=== PATIENT | male | born 1970 | race Caucasian/White ===

== ENCOUNTER 2022-07-16 15:50 | Emergency (ER) | payer MEDICAID, OTHER, SELFPAY ==
--- OUTSIDE RECORDS SUMMARY | 2022-07-16 16:02 | XMS REPORT | Continuity of Care Document ---
:1970 Author Organization [facility] t Address [address] [place] [address] Care Team Providers Name Role Phone Carmen Shine DO Primary Care Physician CARMEN SHINE Attending Clinician Unavailable ROBERTA AZUL Attending Clinician Unavailable Roberta Azul MD Attending Clinician TESTING, RITA SUMNER Attending Clinician Unavailable [id number] Attending Clinician Unavailable RENETTA RAMSAY Attending Clinician Unavailable Renetta Ramsay DO Attending Clinician [facility] Attending Clinician Unavailable RADIOLOGY Attending Clinician Unavailable Radiology Attending Clinician Unavailable Carmen Shine DO Attending Clinician LAB90 Attending Clinician Unavailable Doctor Unassigned, [place] Attending Clinician Unavailable Laura Cerna DPM Attending Clinician KUNAL CARIRON Attending Clinician Unavailable Kunal Carrion MD Attending Clinician Nadine Walden Attending Clinician NADINE SHETTY Attending Clinician Unavailable ROBERTA AZUL Admitting Clinician Unavailable RENETTA RAMSAY Admitting Clinician Unavailable [facility] Admitting Clinician Unavailable CARMEN SHINE Admitting Clinician Unavailable Payers Payer Name Policy Type Policy Number Effective Date Expiration Date S jeffrey BCBS 2 [id number] 2022 00:00:00 [place] [id number] 2022 00:00:00 [place] [id number] 2022 (PPO) 00:00:00 [facility] [id number] 2020 PPO 00:00:00 Problems Condition Condition Condition Status Onset Resolution Last Treating Co mments Source Name Details Category Date Date Treatment Clinician Date 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-08 Seybold right right 00:00: great toe great toe 00 Ingrown Ingrown Disease Active Jenny toenail of toenail of 4-08 Se ybold right foot right foot 00:00: 00 No known No known Disease Unive rs active active ity of problems problems [place] [facility] [place] Allergies, Adverse Reactions, Alerts Allergy Allergy Status Severity Reaction(s) Onset Inactive Treating Comm ents Source Name Type Date Date Clinician Penicill Propensi Active Anaphylaxis 2020-0 U nivers ins ty to 1-30 ity of adverse 00:00: [place] reaction 00 Medical s Branch Penicill Propensi Active Anaphylaxis 2020-0 U nivers ins ty to 1-30 ity of adverse 00:00: [place] reaction 00 Medical s Branch PENICILL Drug Active Anaphylaxis Uni vers INS Class 1-30 ity of 00:00: [place] 00 Medical Branch Penicill Propensi Active Anaphylaxis 2020-0 U nivers ins ty to 1-30 ity of adverse 00:00: [place] reaction 00 Medical s Branch Penicill Propensi Active Anaphylaxis 2020-0 K elsey ins ty to 1-30 Seybold adverse 00:00: reaction 00 s PENICILL Allergy Active [place] INS to [facility]stanc [facility] Social History Social Habit Start Date Stop Date Quantity Comments Source History of Snuff User Jenny Teran tobacco use Exposure to 2022-06-23 2022-07-03 [facility] (event) Branch Alcohol intake 2022-02-21 2022-02-21 Ex-drinker Jenny Luu bold 00:00:00 00:00:00 (finding) Tobacco use and 2020-12-11 2020-12-11 User of smokeless Un iversity of exposure 00:00:00 00:00:00 tobacco [facility] Sex Ass[birth year] At [birth year] Jenny fry 00:00:00 00:00:00 Smoking Status Start Date Stop Date Source Unknown if ever smoked [facility] Never smoked tobacco [facility] Medications Ordered Filled Start Stop Current Ordering Indication Dosage Frequency Signature Comments Components Source Medication Medication Date Date Medication? Clinician (SIG) Name Name barium 2021- No [id number] 135mL 135 mL, U nivers sulfate 07-08 Oral, ity of (E-Z-HD 00:00: 23:50 ONCE, 1 [place] BARIUM) 98 00 :00 dose, On Medic al % oral Mon Branch suspension 07/07/22 at 135 mL 1900, Routine barium 2021- No [id number] 355mL 355 mL, U nivers sulfate 07-08 Oral, ity of (LIQUID E-Z 00:00: 23:50 ONCE, 1 Gopal young PAQUE) 60 % 00 :00 dose, On Medi maria g (w/v) oral Mon Branch suspension 07/07/22 at 355 mL 1900, Routine sod 2021- No [id number] 1{packe 1 Packet, Univers bicarb-citr 07-08 t} Oral, ity of ic 00:00: 23:50 ONCE, 1 [place] ac-simeth 00 :00 dose, On Medica l (E-Z-GAS Mon Branch II) 07/07/22 at 2.21-1.53 1900, gram/4 gram Routine packet 1 Packet iopamidol 2021- No [id number] 100mL 100 mL, Univers (ISOVUE 07-03 Intravenou ity o f 370-500 mL) 23:00: 23:00 s, ONCE, 1 [place] injection 00 :00 dose, On Medica l 100 mL Madeleine Branch 07/03/22 at 1800, Routine famotidine 2021- No 20mg 20 mg, Univ ers (PEPCID 07-03 Slow IV ity of (PF)) 22:15: 21:45 Push, [place] injection 00 :00 ONCE, 1 Medical 20 mg dose, On Branch Madeleine 07/03/22 at 1715, Routine gadobenate 2021- No [id number] .2mL/kg 0.2 mL/kg, Univers dimeglumine 06-20 Intravenou i ty of (MULTIHANCE 14:30: 14:29 s, ONCE, 1 [place] -15 mL) 00 :00 dose, On Medical injection Fri Branch 0.2 mL/kg 06/20/22 at 0930, Routine iopamidol 2021- No [id number] 55mL 55 mL, U nivers (ISOVUE 05-20 Intravenou ity o f 370-500 mL) 23:45: 22:38 s, ONCE, 1 [place] injection 00 :00 dose, On Medica l 55 mL Tue Branch 05/20/22 at 1845, Routine busPIRone Yes 7.5mg Take 7.5 Donavon sey HCl 7.5 MG 4-15 mg by Seybold oral Tablet 13:50: mouth 3 35 times daily Pantoprazol 2021-0 Yes 40mg Take 40 mg Jenny e Sodium 40 4-15 by mouth Seyb old MG oral 13:50: daily Tablet 35 Delayed Response busPIRone 2021-0 Yes 7.5mg Take 7.5 Donavon sey HCl 7.5 MG 4-08 mg by Seybold oral Tablet 15:44: mouth 3 41 times daily Pantoprazol 2021-0 Yes 40mg Take 40 mg Jenny e Sodium 40 4-08 by mouth Seyb old MG oral 15:44: daily Tablet 41 Delayed Response busPIRone 2021- Yes 7.5mg Take 7.5 Donavon sey HCl 7.5 MG 4-08 mg by Seybold oral Tablet 10:12: mouth 3 27 times daily Pantoprazol Yes 40mg Take 40 mg Jenny e Sodium 40 4-08 by mouth Seyb old MG oral 10:12: daily Tablet 27 Delayed Response Meloxicam Yes 15mg QD Take 1 Jenny 15 MG oral 4-08 tablet (15 Sey bold Tablet 00:00: mg total) 00 by mouth daily as needed for pain Meloxicam Yes 15mg QD Take 1 Jenny 15 MG oral 4-08 tablet (15 Sey bold Tablet 00:00: mg total) 00 by mouth daily as needed for pain Meloxicam Yes 15mg QD Take 1 Jenny 15 MG oral 4-08 tablet (15 Sey bold Tablet 00:00: mg total) 00 by mouth daily as needed for pain Ibuprofen Yes TAKE 1 Jenny 600 MG oral 3-25 TABLET BY Sey bold Tablet 00:00: MOUTH 00 EVERY 6 HOURS WITH FOOD NEEDED FOR PAIN AND INFLAMMATI ON TRIMETHOPRI Yes 1{tbl} Take 1 Ke lsey M-SULFAMETH 3-25 tablet by Sey bold OXAZOLE 00:00: mouth 800-160 MG 00 every 12 oral Tablet hours Ibuprofen 2021- No TAKE 1 Kelse y 600 MG oral 3-25 04-08 TABLET BY Se ybold Tablet 00:00: 00:00 MOUTH 00 :00 EVERY 6 HOURS WITH FOOD NEEDED FOR PAIN AND INFLAMMATI ON TRIMETHOPRI 0 2022- No 1{tbl} Take 1 K elsey M-SULFAMETH 3-25 04-08 tablet by Se ybold OXAZOLE 00:00: 00:00 mouth 800-160 MG 00 :00 every 12 oral Tablet hours busPIRone Yes 7.5mg Take 7.5 Uni vers 7.5 mg 2-02 mg by ity of tablet 17:06: mouth 3 [place] [address] (three) Medical times Branch daily. pantoprazol Yes 40mg Take 40 mg Univers e 40 mg EC 2-02 by mouth ity o f tablet 17:06: daily. [place] [address] Medical Branch busPIRone Yes 7.5mg Take 7.5 Uni vers 7.5 mg 2-02 mg by ity of tablet 17:06: mouth 3 [place] [address] ([facility]) Medical times [place] daily. pantoprazol 2020-0 Yes 40mg Take 40 mg Univers e 40 mg EC 2-02 by mouth ity o f tablet 17:06: daily. [address] busPIRone 2020-0 Yes 7.5mg Take 7.5 Uni vers 7.5 mg 2-02 mg by ity of tablet 11:06: mouth 3 [place] [address] ([facility]) [facility] times [place] daily. pantoprazol 2020-0 Yes 40mg Take 40 mg Univers e 40 mg EC 2-02 by mouth ity o f tablet 11:06: daily. [address] busPIRone 2020-0 Yes 7.5mg Take 7.5 Uni vers 7.5 mg 2-02 mg by ity of tablet 11:06: mouth 3 [place] [address] ([facility]) [facility] times [place] daily. pantoprazol 2020-0 Yes 40mg Take 40 mg Univers e 40 mg EC 2-02 by mouth ity o f tablet 11:06: daily. [address] busPIRone 2020-0 Yes 7.5mg Take 7.5 Uni vers 7.5 mg 2-02 mg by ity of tablet 11:06: mouth 3 [place] [address] ([facility]) [facility] times [place] daily. pantoprazol 2020-0 Yes 40mg Take 40 mg Univers e 40 mg EC 2-02 by mouth ity o f tablet 11:06: daily. [address] busPIRone 2020-0 Yes 7.5mg Take 7.5 Uni vers 7.5 mg 2-02 mg by ity of tablet 11:06: mouth 3 [place] [address] ([facility]) [facility] times [place] daily. pantoprazol 2020-0 Yes 40mg Take 40 mg Univers e 40 mg EC 2-02 by mouth ity o f tablet 11:06: daily. [address] busPIRone 2020-0 Yes 7.5mg Take 7.5 Uni vers 7.5 mg 2-02 mg by ity of tablet 11:06: mouth 3 [place] [address] ([facility]) [facility] times [place] daily. pantoprazol 1-0 Yes 40mg Take 40 mg Univers e 40 mg EC 2-02 by mouth ity o f tablet 11:06: daily. [address] busPIRone 2021-0 Yes 7.5mg Take 7.5 Uni vers 7.5 mg 2-02 mg by ity of tablet 11:06: mouth 3 [place] [address] ([facility]) Medical times [place] daily. pantoprazol 0 Yes 40mg Take 40 mg Univers e 40 mg EC 2-02 by mouth ity o f tablet 11:06: daily. [address] busPIRone Yes 7.5mg Take 7.5 Uni vers 7.5 mg 2-02 mg by ity of tablet 11:06: mouth 3 [place] [address] ([facility]) Medical times [place] daily. pantoprazol Yes 40mg Take 40 mg Univers e 40 mg EC 2-02 by mouth ity o f tablet 11:06: daily. [address] hyoscyamine hyoscyamine No 1 QID hyoscyamin [place] 0.125 mg 0.125 mg e 0.125 mg d a sublingual sublingual sublingual [facility] tablet tablet tablet al Place [address] 1 Health tablet 4 tablet 4 tablet 4 Out reac times a day times a day times a h by by day by Program sublingual sublingual sublingual route as route as route as needed. needed. needed. pantoprazol pantoprazol No 1 BID pantoprazo [place] e 40 mg e 40 mg le 40 mg da tablet,jessica tablet,jessica tablet,del [facility] yed release yed release ayed a l Take 1 Take 1 release Health tablet tablet Take 1 Outreac twice a day twice a day tablet h by oral by oral twice a Progra m route for route for day by 30 days. 30 days. oral route for 30 days. Jose' Jose' No Jose' [place] Colon Colon Colon da [facility] promethazin promethazin No promethazi [place] e 12.5 mg e 12.5 mg ne 12.5 mg da tablet TAKE tablet TAKE tablet [facility] ONE (1) ONE (1) TAKE ONE al TABLET(S) TABLET(S) (1) Healt h BY MOUTH BY MOUTH TABLET(S) Ou treac EVERY EVERY BY MOUTH h TWELVE TWELVE EVERY Program HOURS HOURS TWELVE NEEDED. NEEDED. HOURS NEEDED. sucralfate sucralfate No 1 QID sucralfate [place] 1 gram 1 gram 1 gram da tablet Take tablet Take tablet [facility] 1 tablet 4 1 tablet 4 Take 1 a l times a day times a day tablet 4 Health by oral by oral times a Outrea c route route day by h before before oral route Progr am meals for meals for before 30 days. 30 days. meals for 30 days. Immunizations Ordered Filled Immunization Date Status Comments Sour e Immunization Name Name Influenza Virus 2020-08-09 Completed Jenny fry Vaccine, 00:00:00 Unspecified Formulation Influenza Virus 2020-08-09 Completed Jenny fry Vaccine, 00:00:00 Unspecified Formulation Influenza Virus 2020-08-09 Completed Jenny fry Vaccine, 00:00:00 Unspecified Formulation Influenza Virus 2020-08-09 Completed Universit y of Vaccine 00:00:00 [facility] Influenza Virus 2020-08-09 Completed Universit y of Vaccine 00:00:00 [facility] Influenza Virus 2020-08-09 Completed Universit y of Vaccine 00:00:00 [facility] Influenza Virus 2020-08-09 Completed Universit y of Vaccine 00:00:00 [facility] Influenza Virus 2020-08-09 Completed Universit y of Vaccine 00:00:00 [facility] Influenza Virus 2020-08-09 Completed Universit y of Vaccine 00:00:00 [facility] Influenza Virus 2020-08-09 Completed Universit y of Vaccine 00:00:00 [facility] Influenza Virus 2020-08-09 Completed Universit y of Vaccine 00:00:00 [facility] Influenza Virus 2020-08-09 Completed Universit y of Vaccine 00:00:00 [facility] Vital Signs Vital Name Observation Time Observation Value Comments Source Systolic blood 2022-07-03 23:24:00 133 mm[Hg] Univer sity of pressure [facility] Diastolic blood 2022-07-03 23:24:00 87 mm[Hg] Unive rsity of pressure [facility] Heart rate 2022-07-03 23:24:00 69 /[facility] Respiratory rate 2022-07-03 23:24:00 18 /min [facility] Oxygen saturation 2022-07-03 23:24:00 99 /min Uni versity of in Arterial blood [facility] by Pulse oximetry [place] Body temperature 2022-07-03 21:00:00 36.28 Diann [facility] [place] [facility] Body height 2022-07-03 21:00:00 182.9 cm General acute hospital Body weight 2022-07-03 21:00:00 70.761 kg General acute hospital BMI 2022-07-03 21:00:00 21.16 kg/m2 General acute hospital BP Diastolic 2022-06-02 00:00:00 71 mm[Hg] [place] [facility] Height 2022-06-02 00:00:00 72 [in_i] [place] [facility] BMI (Body Mass 2022-06-02 00:00:00 21.6 kg/m2 [place] pelt salter Index) [facility] BP Systolic 2022-06-02 00:00:00 110 mm[Hg] [place] [facility] Body Weight 2022-06-02 00:00:00 159.6 [lb_av] [place] [facility] Body weight 2022-02-14 20:42:00 80.287 kg Jenny Guzman eybold BMI 2022-02-14 20:42:00 24.01 kg/m2 Jenny S eybold Systolic blood 2022-02-14 15:08:00 119 mm[Hg] Jenny Seybold pressure Diastolic blood 2022-02-14 15:08:00 80 mm[Hg] Kelse y Seybold pressure Heart rate 2022-02-14 15:08:00 72 /min Jenny S eyboskinny Body temperature 2022-02-14 15:08:00 36.22 Diann Grecia ey [place] Respiratory rate 2022-02-14 15:08:00 14 /min Grecia ey [place] Body height 2022-02-14 15:08:00 182.9 cm Jenny S eybold Body weight 2022-02-14 15:08:00 79.379 kg with shoes Jenny S eybold BMI 2022-02-14 15:08:00 23.73 kg/m2 Jenny S eybold Systolic blood 2020-12-11 16:59:00 126 mm[Hg] [facility] Diastolic blood 2020-12-11 16:59:00 74 mm[Hg] Unive rsity of [facility] Heart rate 2020-12-11 16:59:00 69 /min General acute hospital Respiratory rate 2020-12-11 16:59:00 20 /min [facility] Body height 2020-12-11 16:59:00 182.9 cm General acute hospital Body weight 2020-12-11 16:59:00 64.547 kg General acute hospital BMI 2020-12-11 16:59:00 19.30 kg/m2 General acute hospital Oxygen saturation 2020-12-11 16:59:00 99 /min Uni versity of in Arterial blood [facility] by Pulse oximetry [place] Systolic blood 2020-12-09 01:30:00 141 mm[Hg] Univer sity of [facility] Diastolic blood 2020-12-09 01:30:00 74 mm[Hg] Unive rsity of [facility] Heart rate 2020-12-09 01:30:00 77 /min General acute hospital Respiratory rate 2020-12-09 01:30:00 11 /min Univ [place] [facility] Oxygen saturation 2020-12-09 01:30:00 99 /min Uni versity of in Arterial blood [facility] by Pulse oximetry [place] Body temperature 2020-12-09 00:52:37 36.5 Diann [facility] Body weight 2020-12-08 22:56:00 63.504 kg General acute hospital Procedures Procedure Date / Time Performing Clinician Source Performed CT ABDOMEN PELVIS W 2022-07-03 22:03:44 [facility] [place] CONTRAST [facility] LIPASE 2022-07-03 21:45:00 Renetta Ramsay [facility] COMP. METABOLIC PANEL 2022-07-03 21:45:00 Renetta Ramsay [facility] [place] ([id number]) [facility] CBC WITH DIFF 2022-07-03 21:45:00 Renetta Ramsay [facility] CONSENT/REFUSAL FOR 2022-07-03 20:32:29 Doctor Unassigned, No [facility] MR ABDOMEN W WO 2022-06-20 14:22:49 Requisition, Paper [facility] CONTRAST MRCP Medical Branch CT ABDOMEN PELVIS W 2022-05-20 22:35:13 Requisition, Paper Unive [facility] CONTRAST [facility] US ABDOMEN COMPLETE 2022-05-20 22:25:00 Requisition, Paper Unive [facility] ASSIGNMENT OF BENEFITS 2022-05-20 20:10:32 Doctor Unassigned, No [facility] XR CHEST 1 VW 2020-12-08 23:37:26 Baudilio [facility] LIPASE 2020-12-08 23:24:00 Astudillo [facility] TROPONIN I 2020-12-08 23:24:00 Baudilio [facility] COMP. METABOLIC PANEL 2020-12-08 23:24:00 Esdras Astudillo [facility] ([id number]) [facility] CBC WITH DIFF 2020-12-08 23:24:00 Baudilio [facility] PROTHROMBIN TIME / INR 2020-12-08 23:24:00 Esdras [facility]illo [facility] ACTIVATED PARTIAL 2020-12-08 23:24:00 Baudilio [facility] THRMPLAS [facility] CONSENT/REFUSAL FOR 2020-12-08 22:41:51 [facility]igned, [facility] NOTICE OF PRIVACY 2020-12-08 22:41:35 Doctor Unassigned, No Univ [facility] PRACTICES [facility] Plan of Care Planned Activity Planned Date Details Comments Source Diagnostic Test 2022-06-02 CBC w/ auto diff [place] [facility] Pending 00:00:00 [code = CBC w/ auto Health O utreach diff] Program Diagnostic Test 2022-06-02 lipase, serum or [place] [facility] Pending 00:00:00 plasma [code = Health Outrea ch lipase, serum or Program plasma] Diagnostic Test 2022-06-02 CMP, serum or [place] [facility] Pending 00:00:00 plasma [code = CMP, Health O utreach serum or plasma] Program Diagnostic Test 2022-06-02 hepatitis C Ab, [place] [facility] Pending 00:00:00 [id number], Health Out reach serum or plasma Program [code = hepatitis C Ab, [id number], serum or plasma] Encounters Start End Encounter Admission Attending Care Care Encounter Source Date/Time Date/Time Type Type Clinicians Facility Department ID 2022-07-15 2022-07-15 Outpatient JENNY SHINE [id number] Jenny 16:00:00 16:00:00 CARMEN Seybol d 2022-07-08 2022-07-08 Outpatient JENNY SHINE [id number] Jenny 14:15:00 14:15:00 CARMEN Seybol d 2022-07-08 2022-07-08 Outpatient JENNY SHINE [id number] Jenny 00:00:00 00:00:00 CARMEN Seybol d 2022-07-08 2022-07-08 Outpatient JENNY SHINE [id number] Jenny 00:00:00 00:00:00 CARMEN Seybol d 2022-07-07 2022-07-07 [facility] [id number] Univers 12:41:09 23:59:00 [facility]22-07-07 2022-07-07 [facility] [id number] Univers 12:41:09 23:59:00 Encounter [id number] [id number] [facility] [id number] [facility] 807 Branch ([facility]) 2022-07-07 2022-07-07 Outpatient [facility] [id number] Univers 13:00:00 13:00:00 [facility]ERTA [id number] [facility] 2022-07-04 2022-07-04 Outpatient TESTING, LJ JENNY BURDEN [id number] Jenny 14:00:00 14:00:00 Seybol d 2022-07-04 2022-07-04 Outpatient GHW91-XLE JENNY BURDEN [id number] Jenny 12:55:00 12:55:00 Seybol d 2022-07-04 2022-07-04 Outpatient JENNY SHINE [id number] Jenny 00:00:00 00:00:00 CARMEN Seybol d 2022-07-04 2022-07-04 Outpatient JENNY SHINE [id number] Jenny 00:00:00 00:00:00 CARMEN Seybol d 2022-07-04 2022-07-04 Outpatient JENNY SHINE [id number] Jenny 00:00:00 00:00:00 CARMEN Seybol d 2022-07-03 2022-07-03 Emergency [facility] [id number] Univers 16:09:00 18:27:[address] [facility] 2022-07-03 2022-07-03 Emergency [facility] [id number] Univers 16:09:00 18:27:00 Renetta [id number] [facility] [id number] [facility] [id number] [address] 2022-07-03 2022-07-03 Outpatient JENNY SHINE [id number] Jenny 00:00:00 00:00:00 CARMEN Seybol d 2022-07-01 2022-07-01 Outpatient JENNY SHINE [id number] Jenny 00:00:00 00:00:00 CARMEN Seybol d 2022-06-25 2022-06-25 Outpatient Amaya_Vane [facility] [id number] [place] 00:00:00 00:00:00 bin [id number] da [facility] Outre [facility] Program 2022-06-24 2022-06-24 Outpatient JENNY SHINE [id number] Jenny 00:00:00 00:00:00 CARMEN Seybol d 2022-06-24 2022-06-24 Outpatient JENNY SHINE [id number] Jenny 00:00:00 00:00:00 CARMEN Seybol d 2022-06-24 2022-06-24 Outpatient PREZAJNENY Guzman [id number] Jenny 00:00:00 00:00:00 CARMEN Seybol d 2022-06-24 2022-06-24 Outpatient PREZAJENNY Guzman [id number] Jenny 00:00:00 00:00:00 CARMEN Seybol d 2022-06-23 2022-06-23 Outpatient PREZAJENNY Guzman [id number] Jenny 00:00:00 00:00:00 CARMEN Seybol d 2022-06-20 2022-06-20 Outpatient R RADIOLOGY [facility] [id number] Univers 08:33:34 23:59:00 ity of [facility] 2022-06-20 2022-06-20 Hospital Radiology [facility] [id number] Univers 08:33:34 23:59:00 Encounter JOCY [id number] ity [facility] [id number] [facility] [id number] [address] 2022-06-20 2022-06-20 Outpatient R RADIOLOGY [facility] [id number] Univers 09:00:00 09:00:00 [id number] ity of [facility] 2022-06-20 2022-06-20 Outpatient PREZAJENNY Guzman [id number] Jenny 00:00:00 00:00:00 CARMEN Seybol d 2022-06-20 2022-06-20 Outpatient PREZAJENNY Guzman [id number] Jenny 00:00:00 00:00:00 CARMEN Seybol d 2022-06-16 2022-06-16 Office PrezaRolly guzman [id number] Jenny 14:00:00 14:30:00 Visit Carmen Muir [id number] Se fry [id number] 2022-06-12 2022-06-12 Outpatient LAB90 JENNY BURDEN [id number] Jenny 14:50:00 14:50:00 Seybol d 2022-06-12 2022-06-12 Outpatient JENNY SHINE [id number] Jenny 00:00:00 00:00:00 CARMEN Seybol d 2022-06-11 2022-06-11 Outpatient PREZACarole JENNY JENNY [id number] Jenny 00:00:00 00:00:00 CARMEN Seybol d 2022 2022 Outpatient PREZAS, JENNY BURDEN [id number] Jenny 00:00:00 00:00:00 CARMEN Seybol d 2022 2022 Outpatient PREZAS JENNY BURDEN [id number] Jenny 00:00:00 00:00:00 CARMEN Seybol d 2022 2022 Outpatient PREZAS, JENNY BURDEN [id number] Jenny 00:00:00 00:00:00 CARMEN Seybol d 2022-06-09 2022-06-09 Outpatient LAB90 JENNY BURDEN [id number] Jenny 15:15:00 15:15:00 Seybol d 2022-06-09 2022-06-09 Office Rolly Shine [id number] Jenny 14:30:00 15:00:00 Visit Carmen Wood [id number] Se ybold [id number] 2022-06-09 2022-06-09 Outpatient PREBAILEE JENNY BURDEN [id number] Jenny 00:00:00 00:00:00 CARMEN Seybol d 2022-06-03 2022-06-03 Outpatient Amaya_Vane [facility] 120 [id number] [place] 10:47:00 10:47:00 bin [id number] [facility] 2022-06-02 2022-06-02 Outpatient Amaya_Vane [facility] [id number] [place] 03:48:00 03:48:00 bin [id number] [facility] 2022-06-02 2022-06-02 Damien Quispe [facility] [place] - [id number] [place] 00:00:00 00:00:00 Emir Conde MD: [id number] [facility] [employer] copy clerk [place] [address] HOP - [facility] [address] [place] [id number] , Ph. 2022-05-29 2022-05-29 Outpatient Ferguson_Ro [facility] [id number] [place] 04:59:00 04:59:00 bin [id number] [facility] 2022-05-20 2022-05-20 Hospital Radiology [facility] [id number] Univers 15:13:16 23:59:00 Encounter [place] [id number] ity of [place] [id number] [facility] s MERIDIAN [id number] [facility] [facility] [address] 2022-05-20 2022-05-20 Outpatient R RADIOLOGY [facility] [id number] Univers 15:12:47 15:12:00 ity of [facility] 2022-05-20 2022-05-20 [facility] Radiology [facility] 1.2.840.114 [id number] Univers 15:05:00 15:12:00 Encounter [place] 350.1.13.10 ity of [facility] 4.2.7.2.686 [facility] s CAMPUS [id number] [facility] [address] 2022-05-20 2022-05-20 [facility] Radiology [facility] 1.2.840.114 [id number] Univers 14:30:00 15:04:00 Encounter [place] 350.1.13.10 ity of [facility] 4.2.7.2.686 [facility] [id number] [facility] [address] 2022-05-20 2022-05-20 Outpatient R RADIOLOGY [facility] [id number] Univers 14:30:00 14:30:[id number] [facility] 2022-05-20 2022-05-20 Orders Doctor ORNELAS 1.2.840.114 [id number] Univers 00:00:00 00:00:00 Only Unassigned, ALTHEA 350.1.13.10 ity of [place] [facility] 4.2.7.2.686 Juan Manuel [id number] [address] 2022-02-21 2022-02-21 Office LO Cerna 1.2.840.114 [id number] Jenny 13:50:00 14:00:00 Visit Laura Munoz 350.1.13.13 S [place] 1.2.7.2.686 [id number] 0 2022-02-14 2022-02-14 Office LO Cerna 1.2.840.114 [id number] Jenny 15:50:00 16:00:00 Visit Laura Munoz 350.1.13.13 S [place] 1.2.7.2.686 [id number] 0 2022-02-14 2022-02-14 Office Rolly Shine 1.2.840.114 [id number] Jenny 10:00:00 10:30:00 Visit Carmen Muir 350.1.13.13 Se [place]bold 1.2.7.2.686 [id number] 0 2021-01-22 2021-01-22 Outpatient R [facility] [id number] Univers 08:00:00 08:00:[id number] [facility] 2021-01-22 2021-01-22 Outpatient R [facility] [id number] Univers 08:00:00 [facility] 2021[facility]22 [facility] [id number] Univers 08:00:00 08:00:00 KUNAL zapata [facility] 2021-01-02 2021-01-02 Outpatient R [facility] [id number] Univers 10:00:00 10:00:00 [id number] [facility]-01-02 2021-01-02 Outpatient R MURALI [facility] [id number] Univers 10:00:00 10:00:00 KUNAL zapata [facility] 2020-12-11 2020-12-11 [facility] 1.2.840.114 [id number] Univers 10:34:03 11:36:43 Visit Kunal Sandra 350.1.13.10 French 4.2.7.2.686 [facility] Professio [id number] Ma dical nal [address] [facility] 2020-12-11 2020-12-11 Outpatient R MURALI [facility] [id number] Univers 10:40:00 10:40:00 KUNAL gonsalez o f [facility] 2020-12-08 2020-12-08 Emergency [facility] 1.2.829.961 [id number] Univers 17:09:00 19:49:00 Nadine Guzman Ringle 350.1.13.10 i [facility] 4.2.7.2.686 [facility] [id number] [facility] [address] 2020-12-08 2020-12-08 Emergency X [facility] ERT [id number] Univers 17:09:00 17:09:[address] [facility] Results Test Description Test Time Test Comments Results Result Comments Source COMP. METABOLIC PANEL (65280) 2022-07-03 22:31:09 Test Item Value Reference Range Interpretation Comme nts NA (test code = 5184990246) 138 mmol/L 135-145 K (test code = 2399811925) 3.8 mmol/L 3.5-5 CL (test code = 0900337389) 101 mmol/L 98-108 CO2 TOTAL (test code = 30 mmol/L 23-31 5069769445) AGAP (test code = 8796894737) 2-16 BUN (test code = 5135114154) 11 mg/dL 7-23 GLUCOSE (test code = 4438560931) 95 mg/dL 70-110 CREATININE (test code = 1.08 mg/dL 0.6-1.25 9377899094) TOTAL BILI (test code = 0.8 mg/dL 0.1-1.0 4084094565) CALCIUM (test code = 3289997884) 9.5 mg/dL 8.6-10.6 T PROTEIN (test code = 7.1 g/dL 6.3-8.2 4174284467) ALBUMIN (test code = 1521353561) 4.5 g/dL 3.5-5 ALK PHOS (test code = 3724517868) 54 U/L 34-122 ALTv (test code = 1742-6) 23 U/L 5-50 AST(SGOT) (test code = 25 U/L 13-40 7786614437) eGFR (test code = 0797580791) mL/min/1.73m2 JERMAN (test code = JERMAN) Association of Glomerular Filtration Rate (GFR) and Staging of Kidney Disease* + +--------- + ----+| GFR (mL/min/1.73 m2) ?| With Kidney Damage ?| ?Without Kidney Damage+ +--- + +| ?>90 ?| ?Stage one ?| ? Normal ?+ +-------- + -----+| ?60-89 ?| ?Stage two ?| ? Decreased GFR ? + +--------- + ----+| ?30-59 ?| ?Stage three ?| ? Stage three ? + +--------- + ----+| ?15-29 ?| ?Stage four ? | ? Stage four ?+ +-------- + -----+| ?<15 (or dialysis) ? ?| ?Stage five ? | ? Stage five ?+ +-------- + -----+ *Each stage assumes the associated GFR level has been in effect for at least three months. ?Stages 1 to 5, with or without kidney disease, indicate chronic kidney disease. Notes: Determination of stages one and two (with eGFR >59mL/min/1.73 m2) requires estimation of kidney damage for at least three months as defined by structural or functional abnormalities of the kidney, manifested by either:Pathological abnormalities or Markers of kidney damage (including abnormalities in the composition of the blood or urine or abnormalities in imaging tests). [facility]30[facility]48 Test Item Value Reference Range Interpretation Comments LIPASE (test code = 8355036399) 40 U/L 0-220 Lab Interpretation (test code = Normal 48540-9) [facility] [id number] 21:59:45 Test Item Value Reference Range Interpretation Comments WBC (test code = See_Comment [Automated message] 6690-2) The system [employer] generated this result transmitted ref erence range: 4.20 - 1 0.70 10*3/?L. The re ference range was not u sed to interpret this result as normal/abnor mal. RBC (test code = See_Comment [Automated message] 789-8) The system [employer] generated this result transmitted ref erence range: 4.26 - 5 .52 10*6/?L. The re ference range was not u sed to interpret this result as normal/abnor mal. HGB (test code = 13.7 g/dL 12.2-16.4 718-7) HCT (test code = 39.4 % 38.4-49.3 4544-3) MCV (test code = 84.7 fL 81.7-95.6 787-2) MCH (test code = 29.5 pg 26.1-32.7 785-6) MCHC (test code = 34.8 g/dL 31.2-35 786-4) RDW-SD (test code 40.9 fL 38.5-51.6 = 17445-1) RDW-CV (test code 13.2 % 12.1-15.4 = 788-0) PLT (test code = See_Comment [Automated message] 777-3) The system [employer] generated this result transmitted ref erence range: 150 - 32 8 10*3/?L. The re ference range was not u sed to interpret this result as normal/abnor mal. MPV (test code = 10.6 fL 9.8-13 10355-3) NRBC/100 WBC (test See_Comment [Automat ed message] code = 0049998274) The syste m which generated this result transmitted ref erence range: 0.0 - 10 .0 /100 WBCs. The refer ence range was not u sed to interpret this result as normal/abnor mal. NRBC x10^3 (test See_Comment [Automated message] code = 7462091542) The syste m which generated this result transmitted ref erence range: 10*3/?L. The reference range was not used to interpr et this result as normal/abnormal . GRAN MAT (NEUT) % 51.3 % (test code = 770-8) IMM GRAN % (test 0.60 % code = 9297704690) LYMPH % (test code 32.1 % = 736-9) MONO % (test code 11.7 % = 5905-5) EOS % (test code = 2.9 % 713-8) BASO % (test code 1.4 % = 706-2) GRAN MAT 2.49 10*3/uL 1.99-6.95 x10^3(ANC) (test code = 2090394189) IMM GRAN x10^3 0.03 10*3/uL 0-0.06 (test code = 5806212393) LYMPH x10^3 (test 1.56 10*3/uL 1.09-3.23 code = 731-0) MONO x10^3 (test 0.57 10*3/uL 0.36-1.02 code = 742-7) EOS x10^3 (test 0.14 10*3/uL 0.06-0.53 code = 711-2) BASO x10^3 (test 0.07 10*3/uL 0.01-0.09 code = 704-7) [id number] [facility]22:00 Test Item Value Reference Range Interpretation Comments TROPONIN I (test <0.012 See_Comment [Automated code = 3344171791) message] The system which generated this result transmitted reference range : <=0.034 ng/mL. The reference range was not used to interpr et this result as normal/abnormal . JERMAN (test code = Equal or Less than JERMAN) 0.034 ng/ml---Normal ?Note: Cardiac troponin begins to rise 3-4 hours after the onset of ischemia. Repeat in 4-6 hours if the sample was drawn within 3-4 hours of the onset of the symptom and found normal. Between 0.035 and 0.120 ng/mL--- Borderline. Questionable myocardial injury or necrosis ? ?Note: Serial measurement may be necessary to confirm or exclude the diagnosis of myocardial injury or necrosis; Clinical correlation (symptoms, EKGs, imaging studies, and others) required; Repeat in 4-6 hours if clinically indicated. ? Equal or Higher than 0.121 ng/mL---Abnormal. Myocardial Injury or Necrosis Likely ? Biotin has been reported to cause a negative bias, interpret results relative to patient's use of biotin. ? Lab Interpretation Normal (test code = 41322-2) [facility]. METABOLIC PANEL (14501)2020-12-09 00:14:00 Test Item Value Reference Range Interpretation Comments NA (test code = 137 mmol/L 135-145 2612014459) K (test code = 3.8 mmol/L 3.5-5 3015034394) CL (test code = 98 mmol/L 98-108 6006866180) CO2 TOTAL (test code = 32 mmol/L 23-31 H 7351100141) AGAP (test code = 2-16 2317814365) BUN (test code = 15 mg/dL 7-23 3994267336) GLUCOSE (test code = 102 mg/dL 70-110 8856431767) CREATININE (test code = 0.92 mg/dL 0.6-1.25 7501837951) TOTAL BILI (test code = 0.9 mg/dL 0.1-1.9 5853271559) CALCIUM (test code = 9.4 mg/dL 8.6-10.6 5779384985) T PROTEIN (test code = 7.6 g/dL 6.3-8.2 1528732697) ALBUMIN (test code = 4.7 g/dL 3.5-5 0341442474) ALK PHOS (test code = 66 U/L 34-122 7768954902) ALTv (test code = 35 U/L 5-50 1742-6) AST(SGOT) (test code = 35 U/L 13-40 1196698656) eGFR Calculation mL/min/1.73m2 (Non-) (test code = 2949469065) eGFR Calculation mL/min/1.73m2 () (test code = 2021254155) JERMAN (test code = JERMAN) Association of Glomerular Filtration Rate (GFR) and Staging of Kidney Disease* + --+ --+ ------+| GFR (mL/min/1.73 m2) ?| With Kidney Damage ?| ?Without Kidney Damage+ --------+ --------+ +| ?>90 ?| ?Stage one ?| ? Normal ?+ ---+ ---+ -------+| ?60-89 ?| ?Stage two ?| ? Decreased GFR ? + --+ --+ ------+| ?30-59 ?| ?Stage three ?| ? Stage three ? + --+ --+ ------+| ?15-29 ?| ?Stage four ? | ? Stage four ?+ ---+ ---+ -------+| ?<15 (or dialysis) ? ?| ?Stage five ? | ? Stage five ?+ ---+ ---+ -------+ *Each stage assumes the associated GFR level has been in effect for at least three months. ?Stages 1 to 5, with or without kidney disease, indicate chronic kidney disease. Notes: Determination of stages one and two (with eGFR >59mL/min/1.73 m2) requires estimation of kidney damage for at least three months as defined by structural or functional abnormalities of the kidney, manifested by either:Pathological abnormalities or Markers of kidney damage (including abnormalities in the composition of the blood or urine or abnormalities in imaging tests). Lab Interpretation Abnormal (test code = 06094-7) [facility] [id number] 00:10:00 Test Item Value Reference Range Interpretation Comments LIPASE (test code = 4800978873) 32 U/L 0-220 Lab Interpretation (test code = Normal 70512-5) [facility] 00:08:00 Test Item Value Reference Range Interpretation Comments APTT Patient (test See_Comment [Automat ed code = 3173-2) message] The system which generated this result transmitted reference range : 23 - 38 Seconds . The reference range was not used to interpr et this result as normal/abnormal . JERMAN (test code = JERMAN) The [facility] patient population mean normal value for aPTT is 30 seconds. Lab Interpretation Normal (test code = 79166-0) [facility] / [id number] 00:06:00 Test Item Value Reference Range Interpretation Comments PROTIME PATIENT (test See_Comment [Auto mated message] code = 5964-2) The system wh ich generated this result transmitted ref erence range: 12.0 - 1 4.7 Seconds. The re ference range was not u sed to interpret this result as normal/abnor mal. INR (test code = 6301-6) Nor mal INR <1.1; Warfarin Therap eutic range 2.0 to 3. 0 or 2.5 to 3.5, dep ending upon the indica tions. Lab Interpretation (test Normal code = 21604-8) [facility] WITH [id number] 00:02:00 Test Item Value Reference Range Interpretation Comments WBC (test code = See_Comment [Automated 5976-2) message] The sy stem which generated this result transmitted reference range : 4.20 - 10.70 10*3/?L. The reference range was not used to interpret this result as normal/abnormal . RBC (test code = See_Comment [Automated 549-8) message] The sy stem which generated this result transmitted reference range : 4.26 - 5.52 10*6/?L. The reference range was not used to interpret this result as normal/abnormal . HGB (test code = 14.3 g/dL 12.2-16.4 718-7) HCT (test code = 41.4 % 38.4-49.3 4544-3) MCV (test code = 86.3 fL 81.7-95.6 787-2) MCH (test code = 29.8 pg 26.1-32.7 785-6) MCHC (test code = 34.5 g/dL 31.2-35 786-4) RDW-SD (test code = 39.8 fL 38.5-51.6 51254-3) RDW-CV (test code = 12.6 % 12.1-15.4 788-0) PLT (test code = See_Comment [Automated 777-3) message] The sy stem which generated this result transmitted reference range : 150 - 328 10*3/ ?L. The reference r melissa was not used to interpret this result as normal/abnormal . MPV (test code = 10.1 fL 9.8-13 43950-9) NRBC/100 WBC (test See_Comment [Automat ed code = 9474213941) message] The system which generated this result transmitted reference range : 0.0 - 10.0 /100 WBCs. The refer ence range was not u sed to interpret th is result as normal/abnormal . NRBC x10^3 (test code <0.01 See_Comment [Auto mated = 6529576380) message] The s ystem which generated this result transmitted reference range : 10*3/?L. The reference range was not used to interpret this result as normal/abnormal . GRAN MAT (NEUT) % 65.7 % (test code = 770-8) IMM GRAN % (test code 0.70 % = 1670198432) LYMPH % (test code = 22.1 % 736-9) MONO % (test code = 9.9 % 5905-5) EOS % (test code = 0.7 % 713-8) BASO % (test code = 0.9 % 706-2) GRAN MAT x10^3(ANC) 3.60 10*3/uL 1.99-6.95 (test code = 6414474244) IMM GRAN x10^3 (test 0.04 10*3/uL 0-0.06 code = 5364019146) LYMPH x10^3 (test code 1.21 10*3/uL 1.09-3.23 = 731-0) MONO x10^3 (test code 0.54 10*3/uL 0.36-1.02 = 742-7) EOS x10^3 (test code = 0.04 10*3/uL 0.06-0.53 L 711-2) BASO x10^3 (test code 0.05 10*3/uL 0.01-0.09 = 704-7) Lab Interpretation Abnormal (test code = 05931-7) [facility]"
--- NOTE | 2022-07-16 16:26 | RAD REPORT ---
EXAM DESCRIPTION: RAD - Chest Single View - 07/16/2022 4:21 pm CLINICAL HISTORY: CHEST PAIN Chest pain. COMPARISON: No comparisons FINDINGS: Portable technique limits examination quality. The lungs are mildly emphysematous but grossly clear. The heart is normal in size. No displaced fract ures. IMPRESSION: No acute intrathoracic process suspected.
--- NOTE | 2022-07-16 17:35 | RAD REPORT ---
EXAM DESCRIPTION: US - Abdomen Exam Limited - 07/16/2022 5:21 pm CLINICAL HISTORY: abdominal pain COMPARISON: No comparisons FINDINGS: The gallbladder is absent. No significant abnormality seen in the gallbladder fossa. The c ommon bile duct is normal measuring 4 mm. The liver demonstrates no findings of intrahepatic biliary dilatation. IMPRESSION: Negative study.
[2022-07-16 17:45] LABS: Absolute Lymphocytes (CBC) 1.8 K/uL (0.7-4.9); Hematocrit 40.6 % (39.6-49.0); Lymphocytes % 32.7 % (15.3-44.8); MCV 84.9 fL (80-100); MPV 8.5 fL (7.6-11.3); RBC Red Blood Cell Count 4.78 M/uL (4.33-5.43)
[2022-07-16 18:01] LABS: Albumin 3.7 g/dL (3.4-5.0); Bilirubin Direct 0.2 mg/dL (0-0.2); Bilirubin Total 0.4 mg/dL (0.2-1.0); Potassium 3.6 mmol/L (3.5-5.1); Protein, Total 7.4 g/dL (6.4-8.2)
--- NOTE | 2022-07-16 19:36 | RAD REPORT ---
EXAM DESCRIPTION: CT - Chest For Pe Angio - 07/16/2022 7:22 pm CLINICAL HISTORY: Chest pain. chest pain, sob COMPARISON: Head C Spine Mpr Wo Con dated 07/16/2020; Head C Spine Mpr Wo Con dated 05/07/2019No compar isons TECHNIQUE: CT angiogram of the pulmonary arteries was performed with MIP. All CT scans are performed using dose optimization technique as appropriate and may include automated exposure control or mA/KV adjustment according to patient size. FINDINGS: No evidence of pulmonary thromboembolism. No acute aortic finding demonstrated. The lungs are clear. No significant pericardial or pleural fluid. No concerning bony finding. IMPRESSION: No evidence of pulmonary thromboembolism. No acute lung findings.
--- NOTE | 2022-07-16 19:43 | RAD REPORT ---
EXAM DESCRIPTION: CTAbdomen Pelvis W Contrast - 07/16/2022 7:22 pm CLINICAL HISTORY: Abdominal pain. epigastric abdominal pain COMPARISON: No comparisons TECHNIQUE: Biphasic CT imaging of the abdomen and pelvis was performed with 100 ml non-ionic IV cont rast. All CT scans are performed using dose optimization technique as appropriate and may include automated exposure control or mA/KV adjustment according to patient size. FINDINGS: The lung bases are clear. The liver, spleen, pancreas, adrenal glands and kidneys are within normal limits. No bowel obstruction, free air, free fluid or abscess. Cholecystectomy. Appendectomy. No evidence of significant lymphadenopathy. No suspicious bony findings. IMPRESSION: No acute intra-abdominal or pelvic finding.
--- NOTE | 2022-07-16 20:30 | RAD REPORT ---
EXAM DESCRIPTION: CT - Head Brain Wo Cont - 07/16/2022 8:23 pm CLINICAL HISTORY: dizziness, headache Headache, drowsiness, dizziness COMPARISON: No comparisons TECHNIQUE: All CT scans are performed using dose optimization technique as appropriate and may inclu de automated exposure control or mA/KV adjustment according to patient size. FINDINGS: No intracranial hemorrhage, hydrocephalus or extra-axial fluid collection.No areas of brai n edema or evidence of midline shift. The paranasal sinuses and mastoids are clear. The calvarium is intact. IMPRESSION: No acute intracranial abnormality.
[2022-07-16] MEDS ORDERED: MAGNES/ALUMIN/SIMET 30ML UCUP ONE (20:40)
[2022-07-16] MEDS ORDERED: LIDOCAINE VISCOUS 2% SOLN 15 ML UDC ONE (20:40)
--- NOTE | 2022-07-16 22:36 | EDPHYS ---
Physician Documentation [facility] Name: Dayday Watkins Age: 52 yrs Sex: Male : 1970 Arrival Date: 07/16/2022 Time: 15:52 Bed 11 Private MD: ED Physician Rudi Rubalcava HPI: 07/16 16:07 This 52 yrs old Male presents to ER via Ambulatory with complaints of Chest Pain, jmm Abdominal Pain. 16:07 Onset: The symptoms/episode began/occurred today. Associated signs and symptoms: jmm Pertinent positives: Pertinent negatives: fever. Modifying factors: The patient symptoms are alleviated by nothing, the patient symptoms are aggravated by eating food. The patient has experienced similar episodes in the past, chronically. This is a 52 year old male with no chronic medical conditions that presents to the ED with complaints of epigastric pain beginning thing morning after eating. Patient states then developing chest pain with some shortness of breath. Denies fever, vomiting, diarrhea. . 20:13 Upon discussion with the who was revealed the patient had also been having jmm progressively worsening dizziness over the past few days to the point the patient has difficulty walking more than a few steps. Also states the patient has had brain fog with difficulty recalling information. Patient is now at the point where he is unable to drive.. Historical: - Allergies: 16:08 PENICILLINS; kb3 - Home Meds: 16:08 None [Active]; kb3 - PMHx: 16:08 None; kb3 - PSHx: 16:08 None; kb3 - Immunization history:: Adult Immunizations up to date, Client reports having NOT received the Covid vaccine. - Social history:: Smoking status: Patient denies any tobacco usage or history of. ROS: 16:07 Constitutional: Negative for fever, chills, and weight loss. jmm 16:07 Cardiovascular: Positive for chest pain. 16:07 Respiratory: Positive for shortness of breath. 16:07 Abdomen/GI: Positive for abdominal pain. 16:07 All other systems are negative. Exam: 16:07 Constitutional: This is a well developed, well nourished patient who is awake, alert, jmm and in no acute distress. Head/Face: atraumatic. Eyes: EOMI, no conjunctival erythema appreciated ENT: Moist Mucus Membranes Neck: Trachea midline, Supple Chest/axilla: Normal chest wall appearance and motion. Cardiovascular: Regular rate and rhythm. No edema appreciated Respiratory: Normal respirations, no respiratory distress appreciated 16:07 Back: Normal ROM Skin: General appearance color normal MS/ Extremity: Moves all extremities, no obvious deformities appreciated, no edema noted to the lower extremities Neuro: Awake and alert Psych: Behavior is normal, Mood is normal, Patient is cooperative and pleasant 16:07 Abdomen/GI: Inspection: abdomen appears normal, Bowel sounds: normal, Palpation: soft, mild abdominal tenderness, in all quadrants. Vital Signs: 07/15 23:00 BP 132 / 96; Pulse 84; Resp 19; Pulse Ox 100% ; vc1 07/16 16:05 BP 129 / 87; Pulse 87; Resp 20; Temp 98.2; Pulse Ox 100% ; Weight 70.31 kg; Height 6 kb3 ft. 0 in. (182.88 cm); Pain 6/10; 16:05 Body Mass Index 21.02 (70.31 kg, 182.88 cm) kb3 MDM: 16:07 Patient medically screened. [facility] 20:14 Data reviewed: vital signs, nurses notes. Counseling: I had a detailed discussion with duglas the patient and/or guardian regarding: the historical points, exam findings, and any diagnostic results supporting the discharge/admit diagnosis. ED course: Upon reevaluation, new information was obtained and CT will be ordered. I discussed the patient with JER Lockwood who will admit the patient for MRI granted the CT does not show an acute process.. ED course: I discussed the patient with Zach Duke whom assumes care. . 22:24 Physician consultation: Edgar Shine DO was contacted at 22:25, regarding consult, pm1 patient's condition, Patient would not benefit from admission and MRI would not be necessary. Impression is that this is all GI related. He is pending work up from GI. Dr. Shine will call Dr. Azul's office tomorrow to follow up on the plan on care. Will discuss with patient and his that he can follow up with Dr. Azul or Dr. Shine, and that he would not benefit from admission. 07/16 16:07 Order name: Basic Metabolic Panel; Complete Time: 18:07 [facility] 07/16 16:07 Order name: CBC with Diff; Complete Time: 17:51 [facility] 07/16 16:07 Order name: LFT's; Complete Time: 18:07 [facility] 07/16 16:07 Order name: Magnesium; Complete Time: 18:07 [facility] 07/16 16:07 Order name: NT PRO-BNP; Complete Time: 18:07 [facility] 07/16 16:07 Order name: PT-INR; Complete Time: 17:51 [facility] 07/16 16:07 Order name: Troponin HS; Complete Time: 18:07 [facility] 07/16 16:07 Order name: XRAY Chest (1 view); Complete Time: 16:31 [facility] 07/16 16:07 Order name: Lipase; Complete Time: 18:07 [facility] 07/16 16:38 Order name: US Abdomen Limited; Complete Time: 17:39 [facility] 07/16 18:28 Order name: Abdomen ; Complete Time: 19:45 [facility] 07/16 18:28 Order name: Chest For Pe Angio; Complete Time: 19:37 [facility] 07/16 20:04 Order name: CT Head Brain wo Cont; Complete Time: 20:33 [facility] 07/16 16:07 Order name: EKG; Complete Time: 16:08 [facility] 07/16 16:07 Order name: Cardiac monitoring; Complete Time: 21:20 [facility] 07/16 16:07 Order name: EKG - Nurse/Tech; Complete Time: 21:20 [facility] 07/16 16:07 Order name: IV Saline Lock; Complete Time: 17:38 [facility] 07/16 16:07 Order name: Labs collected and sent; Complete Time: 17:38 [facility] 07/16 16:07 Order name: O2 Per Protocol; Complete Time: 20:08 [facility] 07/16 16:07 Order name: O2 Sat Monitoring; Complete Time: 20:08 [facility] Administered Medications: 20:45 Drug: GI Cocktail without - (Maalox Suspension 30 ml, Lidocaine Liquid 2 % 15 vc1 ml) Route: PO; 23:28 Drug: Bentyl (dicyclomine) 20 mg Route: PO; vc1 Disposition: 22:18 Co-signature as Attending Physician, Rudi RIVERA was immediately available on-site ms3 in the Emergency Department for consultation in the care of the patient. . Disposition Summary: 07/16/22 22:35 Discharge Ordered Location: Home pm1 Problem: new pm1 Symptoms: have improved pm1 Condition: Stable pm1 Diagnosis - Abdominal pain, unspecified pm1 - Chest pain, unspecified pm1 Followup: pm1 - With: Emergency Department - When: As needed - Reason: Worsening of condition Followup: pm1 - With: Private Physician - When: 2 - 3 days - Reason: Recheck today's complaints, Continuance of care, Re-evaluation by your physician Discharge Instructions: - Discharge Summary Sheet pm1 - Abdominal Pain, Adult pm1 - Nonspecific Chest Pain, Adult pm1 Forms: - Medication Reconciliation Form pm1 - Thank You Letter pm1 - Antibiotic Education pm1 - Prescription Opioid Use pm1 Prescriptions: - dicyclomine 20 mg Oral Tablet - take 1 tablet by ORAL route every 6 hours As needed; 20 tablet; Refills: 0, pm1 Product Selection Permitted Signatures: Dispatcher [employer] EDMS Jairo Rutledge PA PA jmm Zach Duke, PROFESSIONAL FIGHTER PROFESSIONAL FIGHTER pm1 Rudi Rubalcava DO DO ms3 Liseth Chavez RN RN vc1 Evelin Urias RN RN kb3 Corrections: (The following items were deleted from the chart) 16:08 16:08 Allergies: No Known Allergies; kb3 kb3
--- NOTE | 2022-07-16 22:36 | ER ---
Nurse's Notes [facility] Name: Dayday Watkins Age: 52 yrs Sex: Male : 1970 Arrival Date: 07/16/2022 Time: 15:52 Bed 11 Private MD: Diagnosis: Abdominal pain, unspecified;Chest pain, unspecified Presentation: 07/16 16:05 Chief complaint: Patient states: Pt reports ongoing epigastric pain that comes and goes kb3 with intermittent vomiting and diarrhea. Complaints and time line are vague. Pt reports brain fog and low energy. Coronavirus screen: Vaccine status: Patient reports being unvaccinated. Client denies travel out of the [place] in the last 14 days. Ebola Screen: Patient negative for fever greater than or equal to 101.5 degrees Fahrenheit, and additional compatible Ebola Virus Disease symptoms Patient denies exposure to infectious person. Patient denies travel to an Ebola-affected area in the 21 days before illness onset. Initial Sepsis Screen: Does the patient meet any 2 criteria? No. Patient's initial sepsis screen is negative. Does the patient have a suspected source of infection? No. Patient's initial sepsis screen is negative. Risk Assessment: Do you want to hurt yourself or someone else? Patient reports no desire to harm self or others. Onset of symptoms is unknown. 16:05 Method Of Arrival: Ambulatory kb3 16:05 Acuity: NENA 3 kb3 Triage Assessment: 16:08 General: Appears in no apparent distress. Behavior is calm, cooperative. Pain: kb3 Complains of pain in epigastric area. Cardiovascular: Denies chest pain, diaphoresis, fatigue, lightheadedness. Historical: - Allergies: 16:08 PENICILLINS; kb3 - Home Meds: 16:08 None [Active]; kb3 - PMHx: 16:08 None; kb3 - PSHx: 16:08 None; kb3 - Immunization history:: Adult Immunizations up to date, Client reports having NOT received the Covid vaccine. - Social history:: Smoking status: Patient denies any tobacco usage or history of. Screenin:29 Abuse screen: Denies threats or abuse. Nutritional screening: No deficits noted. vc1 Tuberculosis screening: No symptoms or risk factors identified. Fall Risk None identified. Assessment: 19:30 Reassessment: See triage assessment. vc1 19:30 Pain: Complains of pain in epigastric area Pain radiates to chest Pain began gradually. vc1 21:00 Reassessment: Patient and/or family updated on plan of care and expected duration. Pain vc1 level reassessed. Patient is alert, oriented x 3, equal unlabored respirations, skin warm/dry/pink. 22:00 Reassessment: Patient and/or family updated on plan of care and expected duration. Pain vc1 level reassessed. Patient is alert, oriented x 3, equal unlabored respirations, skin warm/dry/pink. Patient states symptoms have improved. 23:00 Reassessment: Patient and/or family updated on plan of care and expected duration. Pain vc1 level reassessed. Patient is alert, oriented x 3, equal unlabored respirations, skin warm/dry/pink. Patient states feeling better. Patient states symptoms have improved. Vital Signs: 07/15 23:00 BP 132 / 96; Pulse 84; Resp 19; Pulse Ox 100% ; vc1 07/16 16:05 BP 129 / 87; Pulse 87; Resp 20; Temp 98.2; Pulse Ox 100% ; Weight 70.31 kg; Height 6 kb3 ft. 0 in. (182.88 cm); Pain 6/10; 16:05 Body Mass Index 21.02 (70.31 kg, 182.88 cm) kb3 ED Course: 15:52 Patient arrived in ED. am2 16:01 Jairo Rutledge PA is PHCP. [facility] 16:01 Rudi Rubalcava DO is Attending Physician. m 16:08 Triage completed. kb3 16:08 Arm band placed on right wrist. kb3 16:22 XRAY Chest (1 view) In Process Unspecified. EDMS 17:23 US Abdomen Limited In Process Unspecified. EDMS 17:37 Inserted saline lock: 20 gauge in right antecubital area, using aseptic technique. zm Blood collected. 17:38 Basic Metabolic Panel Sent. zm 17:38 CBC with Diff Sent. zm 17:38 LFT's Sent. zm 17:38 Magnesium Sent. zm 17:38 NT PRO-BNP Sent. zm 17:38 PT-INR Sent. zm 17:38 Troponin HS Sent. zm 17:38 Lipase Sent. zm 19:15 Patient has correct armband on for positive identification. Pulse ox on. vc1 19:24 Abdomen In Process Unspecified. EDMS 19:24 Chest For Pe Angio In Process Unspecified. EDMS 20:11 PHCP role handed off by Jairo Rutledge PA pm1 20:11 Zach Dkue NP is PHCP. pm1 20:30 CT Head Brain wo Cont In Process Unspecified. EDMS 23:29 No provider procedures requiring assistance completed. IV discontinued, intact, vc1 bleeding controlled, No redness/swelling at site. Pressure dressing applied. Patient maintains SpO2 saturation greater than 95% on room air. Administered Medications: 20:45 Drug: GI Cocktail without - (Maalox Suspension 30 ml, Lidocaine Liquid 2 % 15 vc1 ml) Route: PO; 23:28 Drug: Bentyl (dicyclomine) 20 mg Route: PO; vc1 Medication: 23:31 VIS not applicable for this client. vc1 Outcome: 22:35 Discharge ordered by MD. pm1 23:29 Discharged to home ambulatory, with significant other. vc1 23:29 Condition: improved 23:29 Discharge instructions given to patient, significant other, Instructed on discharge instructions, follow up and referral plans. medication usage, Demonstrated understanding of instructions, follow-up care, medications, Prescriptions given X 1. 23:32 Patient left the ED. vc1 Signatures: Dispatcher [employer] EDMN Jairo Rutledge PA PA [facility] Zach Duke NP [employer] pm1 Nicolle Martinez am2 Liseth Chavez RN RN vc1 Meenu Conteh Kelly, RN RN kb3 Corrections: (The following items were deleted from the chart) 16:08 16:08 Allergies: No Known Allergies; kb3 kb3 16:10 16:05 Chief complaint: Patient states: Pt reports ongoing epigastric pain that comes kb3 and goes with intermittent vomiting and diarrhea. Complaints and time line are vague kb3
[2022-07-16] MEDS ORDERED: DICYCLOMINE HCL 10 MG CAP ONE (23:31)
[2022-07-17 03:12] VITALS: BP 129/87; TEMP 98.2; O2SAT 100
--- NOTE | 2022-07-17 10:51 | EKG ---
Test Date: 2022-07-16 Test Time: 20:52:04 Acoustic Warfare Analyst: JOSEPH MEASUREMENT RESULTS: Intervals: Rate: 73 GA: 162 QRSD: 112 QT: 422 QTc: 464 Tamiment: P: 76 GA: 162 QRS: 58 T: 57 INTERPRETIVE STATEMENTS: Normal sinus rhythm Normal ECG No previous ECG available for comparison Electronically Signed On 07-17-22 10:49:59 CDT by Elmo Peterson
== END 2022-07-16 23:32 | disposition home or self-care (01) ==
LOC: ER 15:50
DX: R07.9 Chest pain, unspecified (principal); R10.13 Epigastric pain; Z88.0 Allergy status to penicillin
CPT/HCPCS: 93005; 85025; 80048; 36415; 83735; 85610; 80076; 84484; 83690; 83880; 70450; 71275; 74177; 71045; 76705; 99284; Q9967

== ENCOUNTER 2022-07-23 08:59 | Day surgery (SDC) | payer OTHER ==
[2022-07-23 09:26] LABS: SARS-CoV-2 Antigen Rapid Res Positive (Negative)
[2022-07-23] MEDS ORDERED: Ringers Lactate 1,000 ML IV ONE (10:02)
[2022-07-23 10:28] VITALS: O2SAT 100
[2022-07-23] MEDS ORDERED: MIDAZOLAM HCL 2 MG/2 ML INJ ONE (12:31)
[2022-07-23] MEDS ORDERED: propofoL 200 MG/20 ML VIAL IV ONE (12:31)
[2022-07-23] MEDS ORDERED: ROCURONIUM 50 MG/5 ML VIAL IV ONE (12:31)
[2022-07-23] MEDS ORDERED: FENTANYL CITR 250 MCG/5 ML ONE (12:31)
[2022-07-23] MEDS ORDERED: LIDOCAINE 1% MPF 5 ML VIAL ONE (12:31)
[2022-07-23] MEDS ORDERED: CIPROFLOXACIN 400mg IV 400 MG/200 ML BAG IV ONE ×2 (12:44→13:00)
[2022-07-23] MEDS ORDERED: KETOROLAC 30 MG/ML INJ ONE (13:09)
[2022-07-23] MEDS ORDERED: dexAMETHasone 10 MG/ML VIAL ONE (13:09)
[2022-07-23] MEDS ORDERED: GLYCOPYRROLATE 0.2 MG/ML SYR ONE (13:29)
[2022-07-23] MEDS ORDERED: ONDANSETRON 4 MG/2 ML VIAL ONE (13:29)
[2022-07-23] MEDS ORDERED: NEOSTIGMINE 1 MG/ML -10 ML VIAL ONE (13:31)
--- NOTE | 2022-07-23 13:33 | P.BOP ---
Preoperative diagnosis: abdominal pain, recurrent, intractable Postoperative diagnosis: cecal diverticulum, umbilical hernia Primary procedure: 1. Diagnostic laparoscopy Secondary procedure: 2. Umbilical hernia repair Warp Changer: WILMER LANG (GALVANIZING POT RUNNER) Estimated blood loss: <10cc Specimen: sac Findings: as above Anesthesia: General Complications: None Transferred to: Recovery Room Condition: Good
[2022-07-23 14:16] VITALS: BP 125/78; TEMP 97.1
[2022-07-23] MEDS ORDERED: HYDROCODONE/APAP 10/325 TAB PO ONE (14:29)
[2022-07-23] MEDS ORDERED: HYDROCODONE/APAP 10/325 TAB ONE (14:43)
--- NOTE | 2022-07-26 00:13 | OP ---
Date of Procedure: 07/23/2022 Surgeon: Benton Conteh MD Preoperative Diagnosis: Abdominal pain, recurrent, intractable, periumbilical, also upper ventral. Postoperative Diagnosis: Cecal diverticulum, umbilical hernias. Procedure: Diagnostic laparoscopy, open repair of umbilical hernia. Anesthesia: General plus local. Complications: None. This is a case of a male, who comes to us with abdominal pain. He has been like that for several mon ths that extensive workup to trying to find etiology of pain. He has had been seen by a gastroentero logist, ERs, primary doctors. He had a series of imaging done including done. The etiol ogy of that is still unclear. The patient was sent to us by the primary doctors since the patient madrid s been having abdominal pain and the GI doctor discussed with them the possibility of a diagnostic la paroscopy and the person want to use that option since other modalities has not been able to find aby ology of the pain. I fully explained to him that diagnostic lap, diagnostic procedure may not give f inal treatment. We might not even find the etiology of this pain or fix the pain. The benefits, alt ernatives, and risks of the diagnostic lap and any other indicated procedure fully explained, which i nclude, but not limited to infection, bleeding, damage to adjacent structures, anesthesia complicatio n, MT, and even . He also understands this might not relieve any symptoms. He might need more than one surgical intervention. We might not find the etiology of the . He understood, si gned a consent. The patient advised once again to discuss his findings with the primary doctors and his best worker to look for some other alternatives, but he wants to go for the diagnostic lap aroscopy. In that case, the patient was booked in OR. Procedure In Detail: The patient was brought to the operating room and placed supine position. Anes thesia was done without complication. Abdominal area was prepped and draped in a sterile fashion. M arcaine 0.5% was injected for local anesthetic followed by sharp incision of the skin in the periumbi lical region. Incision was carried down to fascia, and we noticed the patient to have an umbilical h ernia. There was some omental adhesions attached to it. We carefully removed making sure that we re duced back the omentum that is not bleeding. There was some scar tissue that was removed with just s cissors. After that, we were able to put Vicryl #1 inside the fascia. Catarino trocar was carefully i ntroduced and pneumoperitoneum was obtained. I placed 2 more trocars, 5-mm each one of to the right and left. This allowed me to do a formal diagnostic lap. We ran the ascending colon, tra nsverse colon, descending colon. We did not see any extraluminal masses except for the area near the ascending colon and the cecum. We had structures in that area that resemble a diverticulum. We did not see any polyps outside. We did not see any mass. We did not see any inflammation. There is a tiny diverticulum coming from inside. No masses seen. The small bowel was run from ligament of Trei tz to the terminal ileum. Since the patient has an upper GI series in the past and there was questio n by the patient about stenosis, although the report was negative. We ran the bowel and we noticed h e has strong peristalsis. At some points when we see the peristalsis, it may look like a stricture, but once we wait enough time we see that area recovered back to normal position. We did not see any at least from the outside any stricture showing up. The area of the inguinal region, we did not see any hernia there. The area of the pelvis, we do not see any hernias or any masses. The area in the peritoneum and retroperitoneum, we did not see any at least any obvious lymphadenopathy. In the area of the terminal ileum, we did not see any or any other diverticulum. The area of the sto mach is soft and compressible. The liver with no masses seen at least extraluminal anteriorly. At t hat moment, we look at the area that we did the previous lysis of adhesions from the umbilical hernia . There were minimal. No bleeding. At that moment, I proceeded then to remove the trocars under di rect vision. Deflated the pneumoperitoneum. Closed the hernia with #1 Vicryl. Irrigated subcutaneo us tissue, closed with 3-0 chromic and skin in a subcuticular fashion with 3-0 chromic and anthony on top. Sponge count, instrument counts correct. The patient tolerated the procedure well. The patie nt was sent to recovery in stable condition. 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 Procedure: Diagnostic laparoscopy, open repair of umbilical hernia. Disposition: Home. Activity: As tolerated. No heavy lifting. Followup: In my office in 1 week, call for appointment at [phone]. Keep the area dry for 48 hours, then may shower. For medications, see orders. BENITO/MODL Voice ID: [id number] Report ID: [id number]
== END 2022-07-23 15:00 | disposition home or self-care (01) ==
LOC: OR 08:59
PROVIDERS: ATTEND Surgery
PROC: 0WJG4ZZ Inspection of Peritoneal Cavity, Percutaneous Endoscopic Approach (ICD-10-PCS; 2022-07-23)
PROC: 0WQF0ZZ Repair Abdominal Wall, Open Approach (ICD-10-PCS; principal; 2022-07-23 12:00)
DX: K42.9 Umbilical hernia without obstruction or gangrene (principal); K57.30 Diverticulosis of large intestine without perforation or abscess without bleeding; U07.1 COVID-19
CPT/HCPCS: 36415; 87811; 49585; 49320; J2704; J2710; J2001; J2250; J3010; J1100; J7120; J2405; J0744

== ENCOUNTER 2022-10-10 23:21 | Emergency (ER) | payer OTHER ==
--- OUTSIDE RECORDS SUMMARY | 2022-10-10 23:27 | XMS REPORT | Continuity of Care Document ---
:1970 Author Organization [facility] t Address [address] [place] [address] Care Team Providers Name Role Phone Edgar Shine DO Primary Care Physician JORGE KULKARNI Attending Clinician Unavailable Disha Gaming Attending Clinician Unavailable [facility] Attending Clinician Unavailable EDGAR SHINE Attending Clinician Unavailable ROBERTA AZUL Attending Clinician Unavailable Roberta Azul MD Attending Clinician RITA BRUCE Attending Clinician Unavailable [id number] Attending Clinician Unavailable RENETTA RAMSAY Attending Clinician Unavailable Renetta Ramsay DO Attending Clinician RADIOLOGY Attending Clinician Unavailable Radiology Attending Clinician Unavailable Edgar Shine DO Attending Clinician LAB90 Attending Clinician Unavailable Doctor Unassigned, [place] Attending Clinician Unavailable Laura Cerna DPM Attending Clinician KUNAL CARRION Attending Clinician Unavailable Kunal Carrion MD Attending Clinician NADINE SHETTY Attending Clinician Unavailable Nadine Walden Attending Clinician JORGE KULKARNI Admitting Clinician Unavailable [facility] Admitting Clinician Unavailable ROBERTA AZUL Admitting Clinician Unavailable RENETTA RAMSAY Admitting Clinician Unavailable EDGAR SHINE Admitting Clinician Unavailable IAM ASTUDILLO Admitting Clinician Unavailable Payers Payer Name Policy Type Policy Number Effective Date Expiration Date [facility] [id number] 2022 CHIP 00:00:00 [place] [id number] 2022 (PPO) 00:00:00 BCBS 2 [id number] 2022 00:00:00 [place] [id number] 2022 00:00:00 [facility] [id number] 2020 PPO 00:00:00 Problems Condition Condition Condition [...] rs active active ity of problems problems [facility] Branch [id number] Small Problem Common bowel Spirit tumor [facility] [id number] Family Problem Common history of Spirit early CAD [facility] [id number] Memory Problem Common changes [facility] [id number] Gastroesop Problem Co mmon hageal Spirit reflux - [facility] disease with [facility] esophagiti Medica l s without Center hemorrhage [id number] Ingrown Problem Commo n toenail [facility] Allergies, Adverse Reactions, Alerts Allergy Allergy Status Severity Reaction(s) Onset Inactive Treating Comm ents Source Name Type Date Date Clinician PENICILL Allergy Active High Anaphylaxis 2021-[address] [facility] Medical 00 Center Penicill Propensi Active Anaphylaxis 2021-[address] in ty to 12-10 [facility] adverse 00:00: Medical reaction 00 Center s Penicill Propensi Active Anaphylaxis 2020-0 K elsey ins ty to 1-30 Seybold adverse 00:00: reaction 00 s Penicill Propensi Active Anaphylaxis 2020-0 U nivers ins ty to 1-30 ity of adverse 00:00: [place] reaction 00 Medical s Branch Penicill Propensi Active Anaphylaxis 2020-0 U nivers ins ty to 1-30 ity of adverse 00:00: [place] reaction 00 Medical s Branch PENICILL Drug Active Anaphylaxis Uni vers INS Class 1-30 ity of 00:00: [place] 00 [facility] Penicill Propensi Active Anaphylaxis 2020-0 U nivers ins ty to 1-30 ity of adverse 00:00: [place] reaction 00 [facility] penicill penicill Active Unknown Commo n in V in V [facility] PENICILL Allergy Active [place] to [facility] NO KNOWN Allergy Active [facility] ALLERGIE S Social History Social Habit Start Date Stop Date Quantity Comments Source History of Current Smoker Common Spi rit - Tobacco Use [facility] Exposure to 2022-09-29 2022-10-09 Not sure [facility] SARS-CoV-2 00:00:00 12:20:00 Medical Center (event) Alcohol intake 2022-02-21 2022-02-21 Ex-drinker Jenny Luu tavon 00:00:00 00:00:00 (finding) Tobacco use and 2020-12-11 2020-12-11 User of smokeless Un iversity of exposure 00:00:00 00:00:00 tobacco [facility] Sex Assigned At [birth year] [facility] 00:00:00 00:00:00 Medical Center Smoking Status Start Date Stop Date Source Unknown if ever smoked [facility] Current Smoker 2022-10-05 00:00:00 Common Spiri t - [facility] Never smoked tobacco [facility] Medications Ordered Filled Start Stop Current Ordering Indication Dosage Frequency Signature Comments Components Source Medication Medication Date Date Medication? Clinician (SIG) Name Name sucralfate 2021-11 Yes 1g Q.25D Take [address] (CARAFATE) 2-01 by mouth 4 Oscar es 1 gram 12:17: (four) Medical tablet 10 times Center daily. pantoprazol 2021-11 Yes 40mg Q.5D Take [address] [facility] 2-01 by mouth 2 [facility] (PROTONIX) 12:17: (two) Medica l 40 MG 10 times Center tablet daily. HYOSCYAMINE 2021-11 Yes .125mg Take 0.[address] SULFATE 2-01 mg by [facility] ORAL 12:17: mouth as Medical 10 needed. Center promethazin 2021-11 Yes 25mg Take [address] [facility] 2-01 by mouth [facility] (PHENERGAN) 12:17: every 6 Med ical 25 MG 10 (six) Center tablet hours as needed for Nausea. ibuprofen 2021-11 Yes 600mg Take [address] (ADVIL,MOTR 2-01 mg by [facility] IN) 600 MG 12:17: mouth Medica l tablet 10 every 6 Center (six) hours as needed for Pain. barium 2021- No [id number] 135mL 135 mL, U nivers sulfate 07-08 Oral, ity of (E-Z-HD 00:00: 23:50 ONCE, 1 [place] BARIUM) 98 00 :00 dose, On Medic al % oral Mon Branch suspension 07/07/22 at 135 mL 1900, Routine barium 2021- No [id number] 355mL 355 mL, U nivers sulfate 07-08 Oral, ity of (LIQUID E-Z 00:00: 23:50 ONCE, 1 [place] PAQUE) 60 % 00 :00 dose, On Medi maria g (w/v) oral Mon Branch suspension 07/07/22 at 355 mL 1900, Routine sod 2021- No [id number] 1{packe 1 Packet, Univers bicarb-citr 07-08 t} Oral, ity of ic 00:00: 23:50 ONCE, 1 [place] ac-simeth 00 :00 dose, On Medica l (E-Z-GAS Mon Branch II) 07/07/22 at 2.21-1.53 1900, gram/4 gram Routine packet 1 Packet iopamidol 2021- No [id number] 100mL 100 mL, Univers (ISOVUE 07-03 Intravenou [...] 07/03/22 at 1715, Routine gadobenate 2021- No [id number] .2mL/kg 0.2 mL/kg, Univers dimeglumine 06-20 Intravenou i ty of (MULTIHANCE 14:30: 14:29 s, ONCE, 1 [place] -15 mL) 00 :00 dose, On Medical injection Fri Branch 0.2 mL/kg 06/20/22 at 0930, Routine iopamidol 2021- No [id number] 55mL 55 mL, U nivers (ISOVUE 05-20 Intravenou ity o f 370-500 mL) 23:45: 22:38 s, ONCE, 1 [place] injection 00 :00 dose, On Medica l 55 mL Tue Branch 05/20/22 at 1845, Routine busPIRone Yes 7.5mg Take 7.5 Donavon sey HCl 7.5 MG 4-15 mg by Seybold oral Tablet 13:50: mouth 3 35 times daily Pantoprazol 2021- Yes 40mg Take 40 mg Jenny e Sodium 40 4-15 by mouth Seyb old MG oral 13:50: daily Tablet 35 Delayed Response busPIRone Yes 7.5mg Take 7.5 Donavon sey HCl 7.5 MG 4-08 mg by Seybold oral Tablet 15:44: mouth 3 41 times daily Pantoprazol 2022-0 Yes 40mg Take 40 mg Jenny e Sodium 40 4-08 by mouth Seyb old MG oral 15:44: daily Tablet 41 Delayed Response busPIRone Yes 7.5mg Take 7.5 Donavon sey [...] 00 every 12 oral Tablet hours Ibuprofen 0 2021- No TAKE 1 Kelse y 600 MG oral 3-25 04-08 TABLET BY Se ybold Tablet 00:00: 00:00 MOUTH 00 :00 EVERY 6 HOURS WITH FOOD NEEDED FOR PAIN AND INFLAMMATI ON TRIMETHOPRI 0 2021- No 1{tbl} Take 1 K elsey M-SULFAMETH 3-25 04-08 tablet by Se ybold OXAZOLE 00:00: 00:00 mouth 800-160 MG 00 :00 every 12 oral Tablet hours busPIRone Yes 7.5mg Take 7.5 Uni vers 7.5 mg 2-02 mg by ity of tablet 17:06: mouth 3 [place] 07 (three) Medical times Branch daily. pantoprazol Yes 40mg Take 40 mg Univers e 40 mg EC 2-02 by mouth ity o f tablet 17:06: daily. [address] busPIRone 2020-0 Yes 7.5mg Take 7.5 Uni vers 7.5 mg 2-02 mg by ity of tablet 17:06: mouth 3 [place] [address] ([facility]) Medical times Hernandez daily. pantoprazol 2020-0 Yes 40mg Take 40 mg Univers e 40 mg EC 2-02 by mouth ity o f tablet 17:06: daily. [address] busPIRone 2020-0 Yes 7.5mg Take 7.5 Uni vers 7.5 mg 2-02 mg by ity of tablet 11:06: mouth 3 [place] [address] ([facility]) [facility] times Hernandez daily. pantoprazol 2020-0 Yes 40mg Take 40 mg Univers e 40 mg EC 2-02 by mouth ity o f tablet 11:06: daily. [address] busPIRone 2020-0 Yes 7.5mg Take 7.5 Uni vers 7.5 mg 2-02 mg by ity of tablet 11:06: mouth [address]) [facility] times Hernandez daily. pantoprazol 2020-0 Yes 40mg Take 40 mg Univers e 40 mg EC 2-02 by mouth ity o f tablet 11:06: daily. [address] busPIRone 2020-0 Yes 7.5mg Take 7.5 Uni vers 7.5 mg 2-02 mg by ity of tablet 11:06: mouth 3 [place] [address] ([facility]) [facility] times Hernandez daily. pantoprazol 2020-0 Yes 40mg Take 40 mg Univers e 40 mg EC 2-02 by mouth ity o f tablet 11:06: daily. [address] busPIRone 2020-0 Yes 7.5mg Take 7.5 Uni vers 7.5 mg 2-02 mg by ity of tablet 11:06: mouth 3 [place] [address] ([facility]) [facility] times Hernandez daily. pantoprazol 1-0 Yes 40mg Take 40 mg Univers e 40 mg EC 2-02 by mouth ity o f tablet 11:06: daily. [address] busPIRone 2020-0 Yes 7.5mg Take 7.5 Uni vers 7.5 mg 2-02 mg by ity of tablet 11:06: mouth 3 [place] [address] ([facility] Medical times Branch daily. pantoprazol Yes 40mg Take 40 mg Univers e 40 mg EC 2-02 by mouth ity o f tablet 11:06: daily. [address] busPIRone Yes 7.5mg Take 7.5 Uni vers 7.5 mg 2-02 mg by ity of tablet 11:06: mouth 3 [place] [address] (three) Medical times Hernandez daily. pantoprazol Yes 40mg Take 40 mg Univers e 40 mg EC 2-02 by mouth ity o f tablet 11:06: daily. [address] busPIRone Yes 7.5mg Take 7.5 Uni vers 7.5 mg 2-02 mg by ity of tablet 11:06: mouth 3 [place] [address] ([facility]) [facility] times Hernandez daily. pantoprazol Yes 40mg Take 40 mg Univers e 40 mg EC 2-02 by mouth ity o f tablet 11:06: daily. [address] Sucralfate Sucralfate No 1{table QID Sucralfate 1 GM 1 GM t} 1 GM Pantoprazol Pantoprazol No QD Pantoprazo e Sodium 40 e Sodium 40 le Sodium MG MG 40 MG Promethazin Promethazin No Promethazi e HCl 25 MG e HCl 25 MG ne HCl 25 MG Hyoscyamine Hyoscyamine No TID Hyoscyamin Sulfate Sulfate e Sulfate 0.125 MG 0.125 MG 0.125 MG Sucralfate Sucralfate No 1{table QID Sucralfate 1 GM 1 GM t} 1 GM Pantoprazol Pantoprazol No QD Pantoprazo e Sodium 40 e Sodium 40 le Sodium MG MG 40 MG Promethazin Promethazin No Promethazi e HCl 25 MG e HCl 25 MG ne HCl 25 MG hyoscyamine hyoscyamine No 1 QID hyoscyamin [place] [...] route as route as needed. needed. needed. Hyoscyamine Hyoscyamine No TID Hyoscyamin Sulfate Sulfate e Sulfate 0.125 MG 0.125 MG 0.125 MG Sucralfate Sucralfate No 1{table QID Sucralfate 1 GM 1 GM t} 1 GM pantoprazol pantoprazol No 1 BID pantoprazo [place] [...] 30 days. oral route for 30 days. Pantoprazol Pantoprazol No QD Pantoprazo e Sodium 40 e Sodium 40 le Sodium MG MG 40 MG Garcia' Garcia' No Garcia' [place] Colon Colon Colon da [facility] Promethazin Promethazin No Promethazi e HCl 25 MG e HCl 25 MG ne HCl 25 MG promethazin promethazin No promethazi [place] 12.5 mg e 12.5 mg ne 12.5 mg da tablet TAKE tablet TAKE tablet Episcop ONE (1) ONE (1) TAKE ONE al TABLET(S) TABLET(S) (1) Healt h BY MOUTH BY MOUTH TABLET(S) Ou treac EVERY EVERY BY MOUTH h TWELVE TWELVE EVERY Program HOURS HOURS TWELVE NEEDED. NEEDED. HOURS NEEDED. Hyoscyamine Hyoscyamine No TID Hyoscyamin Sulfate Sulfate e Sulfate 0.125 MG 0.125 MG 0.125 MG sucralfate sucralfate No 1 QID sucralfate [place] [...] days. 30 days. meals for 30 days. Sucralfate Sucralfate No 1{table QID Sucralfate 1 GM 1 GM t} 1 GM Pantoprazol Pantoprazol No QD Pantoprazo e Sodium 40 e Sodium 40 le Sodium MG MG 40 MG Promethazin Promethazin No Promethazi e HCl 25 MG e HCl 25 MG ne HCl 25 MG Hyoscyamine Hyoscyamine No TID Hyoscyamin Sulfate Sulfate e Sulfate 0.125 MG 0.125 MG 0.125 MG Immunizations Ordered Filled Immunization Date Status Comments Sourc e Immunization Name Name Influenza Virus 2020-08-09 Completed Jenny fry Vaccine, 00:00:00 Unspecified Formulation Influenza Virus 2020-08-09 Completed Jenny fry Vaccine, 00:00:00 Unspecified Formulation Influenza Virus 2020-08-09 Completed Jenny fry Vaccine, 00:00:00 Unspecified Formulation Influenza Virus 2020-08-09 Completed Universit y of Vaccine 00:00:00 [facility] Influenza Virus 2020-08-09 Completed Universit y of Vaccine 00:00:00 [facility] Influenza Virus 2020-08-09 Completed Universit y of Vaccine 00:00:00 [facility] Influenza Virus 2020-08-09 Completed Universit y of Vaccine 00:00:00 [facility] Influenza Virus 2020-08-09 Completed Universit y of Vaccine 00:00:00 [facility] Influenza Virus 2020-08-09 Completed Universit y of Vaccine 00:00:00 [facility] Influenza Virus 2020-08-09 Completed Universit y of Vaccine 00:00:00 [facility] Influenza Virus 2020-08-09 Completed Universit y of Vaccine 00:00:00 [facility] Influenza Virus 2020-08-09 Completed Universit y of Vaccine 00:00:00 [facility] Vital Signs Vital Name Observation Time Observation Value Comments Source HEIGHT 2022-10-09 12:20:00 182.9 cm WEIGHT 2022-10-09 12:20:00 68.493 kg height 2022-09-15 09:40:00 69 [in_i] [facility] weight 2022-09-15 09:40:00 161.2 [lb_av] Common [facility] temperature 2022-09-15 09:40:00 97.5 [degF] [facility] bmi 2022-09-15 09:40:00 23.8 kg/m2 [facility] oximetry 2022-09-15 09:40:00 100 % [facility] respiratory rate 2022-09-15 09:40:00 17 /min Comm on [facility] blood pressure 2022-09-15 09:40:00 115 mm[Hg] [facility] - systolic [facility] blood pressure 2022-09-15 09:40:00 81 mm[Hg] [facility] - diastolic [facility] Systolic blood 2022-07-03 23:24:00 133 mm[Hg] Univer sity of pressure [facility] Diastolic blood 2022-07-03 23:24:00 87 mm[Hg] Unive rsity of [facility] Heart rate 2022-07-03 23:24:00 69 /min [facility] Respiratory rate 2022-07-03 23:24:00 18 /min [facility] Oxygen saturation 2022-07-03 23:24:00 99 /min Uni versity of in Arterial blood [facility] [place] by Pulse oximetry [place] Body temperature 2022-07-03 21:00:00 36.28 Diann [facility] Body height 2022-07-03 21:00:00 182.9 cm [facility] Body weight 2022-07-03 21:00:00 70.761 kg [facility] BMI 2022-07-03 21:00:00 21.16 kg/m2 [facility] BP Diastolic 2022-06-02 00:00:00 71 mm[Hg] [place] [facility] Height 2022-06-02 00:00:00 72 [in_i] [place] [facility] BMI (Body Mass 2022-06-02 00:00:00 21.6 kg/m2 [place] senior gl accountant Index) [facility] BP Systolic 2022-06-02 00:00:00 110 mm[Hg] [place] [facility] Body Weight 2022-06-02 00:00:00 159.6 [lb_av] [place] [facility] Body weight 2022-02-14 20:42:00 80.287 kg Jenny neal BMI 2022-02-14 20:42:00 24.01 kg/m2 Jenny neal Systolic blood 2022-02-14 15:08:00 119 mm[Hg] Jenny Teran pressure Diastolic blood 2022-02-14 15:08:00 80 mm[Hg] Lor Teran pressure Heart rate 2022-02-14 15:08:00 72 /min Jenny atkinsonboskinny Body temperature 2022-02-14 15:08:00 36.22 Diann Grecia Teran Respiratory rate 2022-02-14 15:08:00 14 /min Grecia Teran Body height 2022-02-14 15:08:00 182.9 cm Jenny atkinsonboskinny Body weight 2022-02-14 15:08:00 79.379 kg with shoes Jenny neal BMI 2022-02-14 15:08:00 23.73 kg/m2 Jenny atkinsonboskinny Systolic blood 2020-12-11 16:59:00 126 mm[Hg] Univer [facility] Diastolic blood 2020-12-11 16:59:00 74 mm[Hg] Unive rs[facility] Heart rate 2020-12-11 16:59:00 69 /min [facility] Respiratory rate 2020-12-11 16:59:00 20 /min [facility] height 2020-12-11 16:59:00 182.9 cm [facility] Body weight 2020-12-11 16:59:00 64.547 kg [facility] BMI 2020-12-11 16:59:00 19.30 kg/m2 [facility] Oxygen saturation 2020-12-11 16:59:00 99 /min Uni versity of in Arterial blood [facility] [place] by Pulse oximetry Branch Systolic blood 2020-12-09 01:30:00 141 mm[Hg] Univer sity of [facility] Diastolic blood 2020-12-09 01:30:00 74 mm[Hg] Unive rs[facility] Heart rate 2020-12-09 01:30:00 77 /min [facility] Respiratory rate 2020-12-09 01:30:00 11 /min Univ [facility] [place] [facility] Oxygen saturation 2020-12-09 01:30:00 99 /min Uni versity of in Arterial blood [facility] [place] by Pulse oximetry Branch Body temperature 2020-12-09 00:52:37 36.5 Diann [facility] Body weight 2020-12-08 22:56:00 63.504 kg [facility] Body height 2022-10-09 12:20:[address] [facility] Body weight 2022-10-09 12:20:[address] [facility] BMI 2022-10-09 12:20:00 20.48 kg/m2 [facility] Procedures Procedure Date / Time Performing Clinician Source Performed CT ABDOMEN PELVIS W 2022-07-03 22:03:44 Renetta Ramsay [facility] LIPASE 2022-07-03 21:45:00 Renetta Ramsay [facility] COMP. METABOLIC PANEL 2022-07-03 21:45:00 Renetta Ramsay Uni [facility] ([id number]) [facility] CBC WITH DIFF 2022-07-03 21:45:00 Renetta Ramsay [facility] CONSENT/REFUSAL FOR 2022-07-03 20:32:29 Doctor Unassigned, No [facility] DIAGNOSIS AND TREATMENT [facility] MR ABDOMEN W WO 2022-06-20 14:22:49 Requisition, Paper [facility] CONTRAST MRCP [facility] CT ABDOMEN PELVIS W 2022-05-20 22:35:13 [facility] US ABDOMEN COMPLETE 2022-05-20 22:25:00 Requisition, Paper Unive [facility] ASSIGNMENT OF BENEFITS 2022-05-20 20:10:32 Doctor Unassigned, No [facility] Name [facility] XR CHEST 1 VW 2020-12-08 23:37:26 Iam Astudillo [facility] LIPASE 2020-12-08 23:24:00 Baudilio Iam [facility] TROPONIN I 2020-12-08 23:24:00 Iam Astudillo [facility] COMP. METABOLIC PANEL 2020-12-08 23:24:00 Iam Astudillo [facility] ([id number]) Medical Branch CBC WITH DIFF 2020-12-08 23:24:00 Iam Astudillo [place] [facility] PROTHROMBIN TIME / INR 2020-12-08 23:24:00 Iam Astudillo [facility] ACTIVATED PARTIAL 2020-12-08 23:24:00 Iam Astudillo [facility] THRMPLAS [facility] CONSENT/REFUSAL FOR 2020-12-08 22:41:51 Doctor Unassigned, No [facility] Name [facility] NOTICE OF PRIVACY 2020-12-08 22:41:35 Doctor Unassigned, No Univ [facility] Name [facility] Plan of Care Planned Activity Planned Date Details Comments Source Future Scheduled 2022-07-10 INFLUENZA VACCINE (#1) [facility] 00:00:00 [code = INFLUENZA Medical Ce nter VACCINE (#1)] Future Scheduled 2022 SHINGLES VACCINES ([address] [facility] Test 00:00:00 of 2) [code = SHINGLES Medic wa Center VACCINES (1 of 2)] Diagnostic Test 2022-06-02 CBC w/ auto diff [code [place] Pending 00:00:00 = CBC w/ auto diff] [facility] 2022-06-02 lipase, serum or [place] Pending 00:00:00 plasma [code = lipase, Epis opal Health serum or plasma] Outreach Pr ogram Diagnostic Test 2022-06-02 CMP, serum or plasma Sandra yolanda Pending 00:00:00 [code = CMP, serum or Episfl pal Health plasma] Outreach Progra m Diagnostic Test 2022-06-02 hepatitis C Ab, [place] Pending 00:00:00 [id number], [facility] serum or plasma [code Outrea ch Program = hepatitis C Ab, [id number], serum or plasma] Future Scheduled 2021-11-[address] [facility] Test 00:00:00 (12+) [code = [facility] DEPRESSION SCREENING (12+)] Future Scheduled [address] [facility] Test 00:00:00 (procedure) [code = [facility] 16761975] Future Scheduled 1991 DTAP/TDAP/TD VACCINES [facility] 00:00:00 (1 - Tdap) [code = Medical C enter DTAP/TDAP/TD VACCINES (1 - Tdap)] Future Scheduled 1990 HEPATITIS C SCREENING [facility] 00:00:00 [code = HEPATITIS C Medical Center SCREENING] Future Scheduled [address] [facility] Test 00:00:00 Counseling and Medical Cente r Screening (12+) [code = Tobacco Cessation Counseling and Screening (12+)] Future Scheduled 1972 COVID-19 VACCINE (#1) [facility] 00:00:00 [code = COVID-[address] VACCINE (#1)] Future Scheduled [address] [facility] Test 00:00:00 (combo) [code = CT Medical C enter Colonography (combo)] Future Scheduled [address] [facility] Test 00:00:00 malignant neoplasm of Medica l Center colon (procedure) [code = 364581515] Future Scheduled [address] [facility] Test 00:00:00 malignant neoplasm of Medica l Center colon (procedure) [code = 667260847] Future Scheduled [address] [facility] Test 00:00:00 malignant neoplasm of Medica l Center colon (procedure) [code = 105406784] Future Scheduled [address] [facility] Test 00:00:00 malignant neoplasm of Medica l Center colon (procedure) [code = 930027395] Future Scheduled 1970 Sigmoidoscopy [code = [facility] 00:[facility] Sigmoidoscopy] Medical Cente r Future Appointment 2022-10-15 Jorgedaljit Kulkarni, [address] [facility] 14:15:00 Mg; Donnie [address], [place] [address] Future Appointment 2022-10-15 Jorge Arie, [address] [facility] 14:15:00 [place]; Donnie 8B, [place] [address] Procedure 2022-10-15 ENTEROSCOPY, BALLOON, [facility] 14:15:00 LOWER SMALL INTESTINE, Medic al Center USING OVERTUBE Procedure 2022-10-15 ENTEROSCOPY, WITH [facility] 14:15:00 BALLOON DILATION Medical [address] Encounters Start End Encounter Admission Attending Care Care Encounter Source Date/Time Date/Time Type Type Clinicians Facility Department ID 2022-10-08 Outpatient ARIE, [facility] Surgery [id number] [facility] 16:57:51 JORGE 2022-09-26 Outpatient DARSHANA Gaming [facility] [id number] Common 08:50:03 Disha [id number] [facility] 2022-09-15 Outpatient Amberly STANITA [facility] [id number] Common 09:39:09 Disha [id number] [facility] 2022-10-09 2022-10-09 Outpatient [facility] SLE [id number] [facility] 00:00:00 00:00:00 2022-10-09 2022-10-09 Outpatient EL [facility] SLE [id number] [facility] 00:00:00 00:00:00 2022-10-09 2022-10-09 Travel [facility] [id number] [facility] 00:00:00 00:00:00 [facility] 2022-10-06 2022-10-06 (TEL) [facility] [id number] Co mmon 00:00:00 00:00:00 [facility] 2022-09-25 2022-09-25 (TEL) [facility] [id number] Co mmon 00:00:00 00:00:00 [facility] 2022-09-18 2022-09-18 [facility]EL[facility] [id number] Co [facility]mon 00:00:00 00:00:00 [facility] 2022-09-15 2022-09-15 OFFICE [facility] [id number] Co mmon 00:00:00 00:00:00 VISIT NEW Spir it PT LEVEL 4 - [facility] 2022-09-03 2022-09-03 Outpatient Ferstanon_Vane FOX [id number] [place] 00:00:00 00:00:00 bin [id number] da [facility] Outre h Program 2022-07-30 2022-07-30 Outpatient Ferguson_Ro [facility] 120 172-202 [place] 00:00:00 00:00:00 bin [id number] [facility] 2022-07-22 2022-07-22 Outpatient PREZACarole, JENNY BURDEN [id number] Jenny 00:00:00 00:00:00 EDGAR Seybol d 2022-07-17 2022-07-17 Outpatient PREZAJENNY Lam [id number] Jenny 00:00:00 00:00:00 EDGAR Seybol d 2022-07-15 2022-07-15 Outpatient PREZASJENNY [id number] Jenny 16:00:00 16:00:00 EDGAR Seybol d 2022-07-08 2022-07-08 Outpatient PREZAJENNY Lam [id number] Jenny 14:15:00 14:15:00 EDGAR Seybol d 2022-07-08 2022-07-08 Outpatient PREZAS, JENNY BURDEN [id number] Jenny 00:00:00 00:00:00 EDGAR Seybol d 2022-07-08 2022-07-08 Outpatient PREZAS, JENNY BURDEN [id number] Jenny 00:00:00 00:00:00 EDGAR Seybol d 2022-07-07 2022-07-07 [facility] [id number] Univers 12:41:09 23:59:00 ROBERTA ity Formerly [facility] 2022-07-07 2022-07-07 [facility] 1.2.840.114 [id number] Univers 12:41:09 23:59:00 Encounter [facility] 350.1.13.10 ity [facility] 4.2.7.2.686 [facility] [id number] [place] [address] [address] ([facility]) 2022-07-04 2022-07-04 Outpatient TESTING, LJ JENNY BURDEN [id number] Jenny 14:00:00 14:00:00 Seybol d 2022-07-04 2022-07-04 Outpatient NCH38-SQK JENNY BURDEN [id number] Jenny 12:55:00 12:55:00 Seybol d 2022-07-04 2022-07-04 Outpatient JENNY SHINE [id number] Jenny 00:00:00 00:00:00 EDGAR Seybol d 2022-07-04 2022-07-04 Outpatient JENNY SHINE [id number] Jenny 00:00:00 00:00:00 EDGAR Seybol d 2022-07-04 2022-07-04 Outpatient JENNY SHINE [id number] Jenny 00:00:00 00:00:00 EDGAR Seybol d 2022-07-03 2022-07-03 [facility] [id number] Univers 16:09:00 18:27:00 RENETTA gonsalez [facility] 2022-07-03 2022-07-03 [facility] 1.2.840.114 [id number] Univers 16:09:00 18:27:00 Renetta [facility]13.10 [facility] 4.2.7.2.686 [facility] [id number] [address] 2022-07-03 2022-07-03 Outpatient JENNY SHINE [id number] Jenny 00:00:00 00:00:00 EDGAR Seybol d 2022-07-01 2022-07-01 Outpatient JENNY SHINE [id number] Jenny 00:00:00 00:00:00 EDGAR Seybol d 2022-06-25 2022-06-25 Outpatient Ferguson_Vane [facility] 120 172-202 [place] 00:00:00 00:00:00 bin [id number] da [facility] 2022-06-24 2022-06-24 Outpatient JENNY SHINE [id number] Jenny 00:00:00 00:00:00 EDGAR Seybol d 2022-06-24 2022-06-24 Outpatient JENNY SHINE [id number] Jenny 00:00:00 00:00:00 EDGAR Seybol d 2022-06-24 2022-06-24 Outpatient PREZASJENNY [id number] Jenny 00:00:00 00:00:00 EDGAR Seybol d 2022-06-24 2022-06-24 Outpatient PREZAS, JENNY BURDEN [id number] Jenny 00:00:00 00:00:00 EDGAR Seybol d 2022-06-23 2022-06-23 Outpatient PREZAS, JENNY BURDEN [id number] Jenny 00:00:00 00:00:00 EDGAR Seybol d 2022-06-20 2022-06-20 Outpatient R RADIOLOGY [facility] [id number] Univers 08:33:34 23:59:00 ity of [facility] 2022-06-20 2022-06-20 Hospital Radiology [facility] 1.2.840.114 [id number] Univers 08:33:34 23:59:00 Encounter JOCY 350.1.13.10 ity [facility] 4.2.7.2.686 [facility] [id number] [address] 2022-06-20 2022-06-20 Outpatient PREZAS, JENNY BURDEN [id number] Jenny 00:00:00 00:00:00 EDGAR Seybol d 2022-06-20 2022-06-20 Outpatient PREZASJENNY [id number] Jenny 00:00:00 00:00:00 EDGAR Seybol d 2022-06-16 2022-06-16 Office PreRolly hooker 1.2.840.114 [id number] Jenny 14:00:00 14:30:00 Visit Edgar Muir 350.1.13.13 Se ybold 1.2.7.2.686 [id number] 0 2022-06-12 2022-06-12 Outpatient LAB90 JENNY BUREDN [id number] Jenny 14:50:00 14:50:00 Seybol d 2022-06-12 2022-06-12 Outpatient PREJENNY HOOKER [id number] Jenny 00:00:00 00:00:00 EDGAR Seybol d 2022-06-11 2022-06-11 Outpatient PREJENNY HOOKER [id number] Jenny 00:00:00 00:00:00 EDGAR Seybol d 2022 2022 Outpatient PREZAS, JENNY JENNY [id number] Jenny 00:00:00 00:00:00 EDGAR Seybol d 2022 2022 Outpatient PREZAJENNY LamSEY [id number] Jenny 00:00:00 00:00:00 EDGAR Seybol d 2022 2022 Outpatient PREZAS, JENNY JENNY [id number] Jenny 00:00:00 00:00:00 EDGAR Seybol d 2022-06-09 2022-06-09 Outpatient LAB90 JENNY JENNY [id number] Jenny 15:15:00 15:15:00 Seybol d 2022-06-09 2022-06-09 Office PreRolly hooker 1.2.840.114 [id number] Jenny 14:30:00 15:00:00 Visit Edagr Muir 350.1.13.13 Se ybold 1.2.7.2.686 [id number] 0 2022-06-09 2022-06-09 Outpatient PREZAJENNY Lam JENNY [id number] Jenny 00:00:00 00:00:00 EDGAR Seybol d 2022-06-03 2022-06-03 Outpatient Fernguyễn_Vane FOX [facility] 120 172-202 [place] 10:47:00 10:47:00 bin [id number] [facility] 2022-06-02 2022-06-02 Outpatient Ferguson_Vane NHPURNIMA [facility] 120 172-202 [place] 03:48:00 03:48:00 bin [id number] [facility] 2022-06-02 2022-06-02 Damien Quispe [facility] [place] - [id number] [place] 00:00:00 00:00:00 Emir Conde MD: [id number] [employer] [place] [address] [facility] - [facility] [address], [place] [address] , Ph. 2022-05-29 2022-05-29 Outpatient Ferguson_Ro [facility] 120 172-202 [place] 04:59:00 04:59:00 bin [id number] da [facility] 2022-05-20 2022-05-20 Hospital Radiology [facility] 1.2.840.114 [id number] Univers 15:13:16 23:59:00 Encounter [place] 350.1.13.10 ity [facility] 4.2.7.2.686 [facility] [id number] [facility] [address] 2022-05-20 2022-05-20 Outpatient R RADIOLOGY [facility] [id number] Univers 15:12:47 15:12:00 ity of [facility] 2022-05-20 2022-05-20 [facility] Radiology [facility] 1.2.840.114 [id number] Univers 15:05:00 15:12:00 Encounter [place] 350.1.13.10 ity of [place] 4.2.7.2.686 [facility] [id number] [facility] [address] 2022-05-20 2022-05-20 [facility] Radiology [facility] 1.2.840.114 [id number] Univers 14:30:00 15:04:00 Encounter [place] 350.1.13.10 ity [facility] 4.2.7.2.686 [facility] [id number] [facility] [address] 2022-05-20 2022-05-20 Orders Doctor JOHNSON 1.2.840.114 [id number] Univers 00:00:00 00:00:00 Only Unassigned, ALTHEA 350.1.13.10 ity of [place] [facility] 4.2.7.2.686 Juan Manuel as [id number] [facility] [address] 2022-02-21 2022-02-21 Office LO Cerna 1.2.840.114 [id number] Jenny 13:50:00 14:00:00 Visit Laura Munoz 350.1.13.13 S ángel 1.2.7.2.686 [id number] 0 2022-02-14 2022-02-14 Office LO Cerna 1.2.840.114 [id number] Jenny 15:50:00 16:00:00 Visit Laura Munoz 350.1.13.13 S ángel 1.2.7.2.686 [id number] 0 2022-02-14 2022-02-14 Office Rolly Shine 1.2.840.114 [id number] Jenny 10:00:00 10:30:00 Visit Edgar Muir 350.1.13.13 Se ang 1.2.7.2.686 [id number] 2021-01-22 2021-01-22 Outpatient R [facility] [id number] Univers 08:00:00 08:00:00 ity [facility] 2021-01-22 2021-01-22 Outpatient R [facility] [id number] Univers 08:00:00 08:00:00 KUNAL mead [facility] 2021-01-02 2021-01-02 Outpatient [facility] [id number] Univers 10:00:00 10:00:00 KUNAL mead [facility] 2020-12-11 2020-12-11 [facility] 1.2.840.114 [id number] Univers 10:34:03 11:36:43 Visit Kunal Sandra 350.1.13.10 it[place] [id number] Ar dical [address] 2020-12-11 2020-12-11 Outpatient [facility] [id number] Univers 10:40:00 10:40:00 KUNAL zapata [facility] 2020-12-08 2020-12-08 Emergency X [facility] [id number] Univers 17:09:00 19:49:00 NADINE gonsalez [facility] 2020-12-08 2020-12-08 Emergency [facility] [id number] Univers 17:09:00 19:49:00 Nadine Sandra 350.1.13.10 i ty of [place] 4.2.7.2.686 [facility] [id number] [facility] [address] Results Test Description Test Time Test Comments Results Result Comments Source COMP. METABOLIC PANEL (19747) 2022-07-03 22:31:09 Test Item Value Reference Range Interpretation Comme nts NA (test code = 5086191318) 138 mmol/L 135-145 K (test code = 4755058743) 3.8 mmol/L 3.5-5 CL (test code = 3202990947) 101 mmol/L 98-108 CO2 TOTAL (test code = 30 mmol/L 23-31 2525742165) AGAP (test code = 5980083487) 2-16 BUN (test code = 2267137032) 11 mg/dL 7-23 GLUCOSE (test code = 9259933235) 95 mg/dL 70-110 CREATININE (test code = 1.08 mg/dL 0.6-1.25 2949097836) TOTAL BILI (test code = 0.8 mg/dL 0.1-1.3 3446954106) CALCIUM (test code = 1261568875) 9.5 mg/dL 8.6-10.6 T PROTEIN (test code = 7.1 g/dL 6.3-8.2 9311701622) ALBUMIN (test code = 2842428912) 4.5 g/dL 3.5-5 ALK PHOS (test code = 8079949849) 54 U/L 34-122 ALTv (test code = 1742-6) 23 U/L 5-50 AST(SGOT) (test code = 25 U/L 13-40 6667966213) eGFR (test code = 0402673737) mL/min/1.73m2 JERMAN (test code = JERMAN) Association [...] or urine or abnormalities in imaging tests). [facility] 22:30:48 Test Item Value Reference Range Interpretation Comments LIPASE (test code = 7370084871) 40 U/L 0-220 Lab Interpretation (test code = Normal 39363-2) [facility] WITH [id number] 21:59:45 Test Item Value Reference Range Interpretation Comments WBC (test code = See_Comment [Automated message] 6690-2) The system TWINLIN[employer] generated this result transmitted ref erence range: 4.20 - 1 0.70 10*3/?L. The re ference range was not u sed to interpret this result as normal/abnor mal. RBC (test code = See_Comment [Automated message] 789-8) The system [employer]WINLIN[employer] generated this result transmitted ref erence range: [...] RDW-SD (test code 40.9 fL 38.5-51.6 = 52897-4) RDW-CV (test code 13.2 % 12.1-15.4 = 788-0) PLT (test code = See_Comment [Automated message] 777-3) The system whic h generated this result transmitted ref erence range: 150 - 32 8 10*3/?L. The re ference range was not u sed to interpret this result as normal/abnor mal. MPV (test code = 10.6 fL 9.8-13 33268-3) NRBC/100 WBC (test See_Comment [Automat ed message] code = 3861004460) The syste m which generated this result transmitted ref erence range: 0.0 - 10 .0 /100 WBCs. The refer ence range was not u sed to interpret this result as normal/abnor mal. NRBC x10^3 (test See_Comment [Automated message] code = 6901122105) The syste m which generated this result transmitted ref erence range: 10*3/?L. The reference range was not used to interpr et this result as normal/abnormal . GRAN MAT (NEUT) % 51.3 % (test code = 770-8) IMM GRAN % (test 0.60 % code = 7531762861) LYMPH % (test code 32.1 % = 736-9) MONO % (test code 11.7 % = 5905-5) EOS % (test code = 2.9 % 713-8) BASO % (test code 1.4 % = 706-2) GRAN MAT 2.49 10*3/uL 1.99-6.95 x10^3(ANC) (test code = 3507076020) IMM GRAN x10^3 0.03 10*3/uL 0-0.06 (test code = 2445842461) LYMPH x10^3 (test 1.56 10*3/uL 1.09-3.23 code = 731-0) MONO x10^3 (test 0.57 10*3/uL 0.36-1.02 code = 742-7) EOS x10^3 (test 0.14 10*3/uL 0.06-0.53 code = 711-2) BASO x10^3 (test 0.07 10*3/uL 0.01-0.09 code = 704-7) [facility] [id number] 00:22:00 Test Item Value Reference Range Interpretation Comments TROPONIN I (test <0.012 See_Comment [Automated code = 4123910970) message] The system which generated this result [...] ? Lab Interpretation Normal (test code = 40195-8) [facility]ville[facility]. MET[facility]OLIC PANEL (76099)2020-12-09 00:14:00 Test Item Value Reference Range Interpretation Comments NA (test code = 137 mmol/L 135-145 5810256769) K (test code = 3.8 mmol/L 3.5-5 3495885219) CL (test code = 98 mmol/L 98-108 8282758384) CO2 TOTAL (test code = 32 mmol/L 23-31 H 7318476412) AGAP (test code = 2-16 8756672050) BUN (test code = 15 mg/dL 7-23 9367685090) GLUCOSE (test code = 102 mg/dL 70-110 2696313785) CREATININE (test code = 0.92 mg/dL 0.6-1.25 6215693116) TOTAL BILI (test code = 0.9 mg/dL 0.1-1.7 6733773809) CALCIUM (test code = 9.4 mg/dL 8.6-10.6 6943557353) T PROTEIN (test code = 7.6 g/dL 6.3-8.2 6675522018) ALBUMIN (test code = 4.7 g/dL 3.5-5 2844736772) ALK PHOS (test code = 66 U/L 34-122 3548887304) ALTv (test code = 35 U/L 5-50 2-6) AST(SGOT) (test code = 35 U/L 13-40 8055767462) eGFR Calculation mL/min/1.73m2 (Non-) (test code = 9568886063) eGFR Calculation mL/min/1.73m2 () (test code = 6839428079) JERMAN (test code = JERMAN) Association of [...] tests). Lab Interpretation Abnormal (test code = 18769-8) [facility], [id number] 00:10:00 Test Item Value Reference Range Interpretation Comments LIPASE (test code = 0279105707) 32 U/L 0-220 Lab Interpretation (test code = Normal 70684-2) [facility]PTT2021-01-31 00:08:00 Test Item Value Reference Range Interpretation Comments APTT Patient (test See_Comment [Automat ed code = 3173-2) message] The system which generated this result transmitted reference range : 23 - 38 Seconds . The reference range was not used to interpr et this result as normal/abnormal . JERMAN (test code = JERMAN) The [facility] patient population mean normal value for aPTT is 30 seconds. Lab Interpretation Normal (test code = 77715-9) [facility]villePROTHROMBIN TIME / [id number] 00:06:00 Test Item Value Reference Range Interpretation [...] tions. Lab Interpretation (test Normal code = 62707-7) [facility]ville[facility] WITH [id number] 00:02:00 Test Item Value Reference Range Interpretation Comments WBC (test code = See_Comment [Automated 1390-2) message] The sy stem which generated this result transmitted reference range : 4.20 - 10.70 10*3/?L. The reference range was not used to interpret this result as normal/abnormal . RBC (test code = See_Comment [Automated 079-8) message] The sy stem which generated this [...] RDW-SD (test code = 39.8 fL 38.5-51.6 35281-8) RDW-CV (test code = 12.6 % 12.1-15.4 788-0) PLT (test code = See_Comment [Automated 777-3) message] The sy stem which generated this result transmitted reference range : 150 - 328 10*3/ ?L. The reference r melissa was not used to interpret this result as normal/abnormal . MPV (test code = 10.1 fL 9.8-13 03451-8) NRBC/100 WBC (test See_Comment [Automat ed code = 0877480297) message] The system which generated this result transmitted reference range : 0.0 - 10.0 /100 WBCs. The refer ence range was not u sed to interpret th is result as normal/abnormal . NRBC x10^3 (test code <0.01 See_Comment [Auto mated = 9973328706) message] The s ystem which generated this result transmitted reference range : 10*3/?L. The reference range was not used to interpret this result as normal/abnormal . GRAN MAT (NEUT) % 65.7 % (test code = 770-8) IMM GRAN % (test code 0.70 % = 6568030581) LYMPH % (test code = 22.1 % 736-9) MONO % (test code = 9.9 % 5905-5) EOS % (test code = 0.7 % 713-8) BASO % (test code = 0.9 % 706-2) GRAN MAT x10^3(ANC) 3.60 10*3/uL 1.99-6.95 (test code = 3173136518) IMM GRAN x10^3 (test 0.04 10*3/uL 0-0.06 code = 5394963908) LYMPH x10^3 (test code 1.21 10*3/uL 1.09-3.23 = 731-0) MONO x10^3 (test code 0.54 10*3/uL 0.36-1.02 = 742-7) EOS x10^3 (test code = 0.04 10*3/uL 0.06-0.53 L 711-2) BASO x10^3 (test code 0.05 10*3/uL 0.01-0.09 = 704-7) Lab Interpretation Abnormal (test code = 24294-9) [facility]"
[2022-10-11 00:34] LABS: Urine Blood Negative (Negative); Urine Glucose Negative (Negative); Urine Protein Negative (Negative); Urine pH 6.5 (5.0-7.0)
[2022-10-11 00:59] LABS: Specific Gravity < 1.005 (1.005-1.030); Urine Bilirubin NEGATIVE (Negative); Urine Blood Negative (Negative); Urine Clarity Clear (Clear); Urine Color Colorless (Yellow); Urine Glucose NEGATIVE (Negative); Urine Protein NEGATIVE (Negative); Urine Urobilinogen Normal (Normal); Urine pH 6.5 (5.0-7.0)
[2022-10-11 01:00] LABS: Absolute Lymphocytes (CBC) 1.6 K/uL (0.7-4.9); Hematocrit 41.1 % (39.6-49.0); Lymphocytes % 30.8 % (15.3-44.8); MCV 85.1 fL (80-100); MPV 8.8 fL (7.6-11.3); RBC Red Blood Cell Count 4.83 M/uL (4.33-5.43)
[2022-10-11 01:14] LABS: Albumin 4.3 g/dL (3.4-5.0); Bilirubin Total 0.7 mg/dL (0.2-1.0); Protein, Total 8.2 g/dL (6.4-8.2)
--- NOTE | 2022-10-11 01:29 | ER ---
Nurse's Notes [facility] Name: Dayday Watkins Age: 52 yrs Sex: Male : 1970 Arrival Date: 10/10/2022 Time: 23:26 Bed 8 Private MD: Diagnosis: Diarrhea, unspecified;Elevated blood-pressure reading, without diagnosis of hypertension Presentation: 10/10 23:50 Chief complaint: Patient states: multiple complaints from 2 days to 2 months including tw5 uncontrolled muscle jerking, right eye drooping, frequent urination, diarrhea, tremors, increased abdominal bloating and pain, visual changes, and increased anxiety. Pt reports he has been seen in multiple ERs and specialists. Coronavirus screen: Vaccine status: Patient reports being unvaccinated. Client denies travel out of the [place] in the last 14 days. Ebola Screen: Patient negative for fever greater than or equal to 101.5 degrees Fahrenheit, and additional compatible Ebola Virus Disease symptoms Patient denies exposure to infectious person. Patient denies travel to an Ebola-affected area in the 21 days before illness onset. No acute neurological deficit is noted. Initial Sepsis Screen: Does the patient meet any 2 criteria? No. Patient's initial sepsis screen is negative. Does the patient have a suspected source of infection? No. Patient's initial sepsis screen is negative. Risk Assessment: Do you want to hurt yourself or someone else? Patient reports no desire to harm self or others. Onset of symptoms is unknown. 23:50 Method Of Arrival: Ambulatory tw5 23:50 Acuity: NENA 3 tw5 10/11 00:30 Note pt reports insomnia. Triage Assessment: 10/10 23:53 The onset of the patients symptoms was at an unknown time. General: Appears in no tw5 apparent distress. Behavior is calm, cooperative. Pain: Complains of pain in abdomen Pain does not radiate. Pain currently is 6 out of 10 on a pain scale. Quality of pain is described as Bloating. Neuro: No deficits noted. Reports blurred vision right eye drooping. Historical: - Allergies: 23:53 PENICILLINS; tw5 - PMHx: 23:53 Mass in colon; tw5 - PSHx: 23:53 ex lap; tw5 - Immunization history:: Adult Immunizations up to date, Client reports having NOT received the Covid vaccine. Last tetanus immunization: unknown. - Social history:: Smoking status: Patient denies any tobacco usage or history of. Screenin/03 00:30 Abuse screen: Denies threats or abuse. Nutritional screening: No deficits noted. kl Tuberculosis screening: No symptoms or risk factors identified. Fall Risk None identified. Assessment: 00:28 VAN Scoring: Arm Drift: Patients demonstrates NO arm weakness. Patient is VAN Negative. kl Visual Disturbance: No visual disturbance noted. Aphasia: No aphasia noted. Neglect: No neglect noted. 00:29 General: Appears in no apparent distress. comfortable, well groomed, well developed, kl Behavior is calm, cooperative. Pain: Denies pain. Neuro: Level of Consciousness is awake, alert, obeys commands, Oriented to person, place, time, situation, Group Director are equal bilaterally Moves all extremities. Gait is steady, Reports weakness generalized x 2 months multiple tremors at times. Cardiovascular: No deficits noted. Respiratory: No deficits noted. 01:30 Reassessment: Patient appears in no apparent distress at this time. Patient and/or family updated on plan of care and expected duration. Pain level reassessed. Patient is alert, oriented x 3, equal unlabored respirations, skin warm/dry/pink. 01:50 The patient does not exhibit slurred or garbled speech. The patient is not exhibiting kl difficulty speaking. The patient is exhibiting difficulty understanding words. The patient is unable to swallow own secretions without drooling or the need for suction. The patient tolerated 90mL of water. No drooling, immediate coughing, gurgling, or clearing of the throat was noted. Vital Signs: 10/10 23:50 BP 148 / 107; Pulse 76; Resp 20; Temp 98.1; Pulse Ox 98% ; Weight 72.57 kg; Height 6 tw5 ft. 0 in. (182.88 cm); Pain 6/10; 10/11 00:31 BP 131 / 98; Pulse 78; Resp 18; Pulse Ox 100% ; kl 01:49 BP 136 / 85; Pulse 72; Resp 18; Pulse Ox 99% on R/A; kl 10/10 23:50 Body Mass Index 21.70 (72.57 kg, 182.88 cm) tw5 NIH Stroke Scale Scores: 10/10 23:50 NIHSS Score: 0 ms3 10/11 00:28 NIHSS Score: 0 ED Course: 10/10 23:26 Patient arrived in ED. ja2 23:33 Rudi Rubalcava DO is Attending Physician. ms3 23:53 Triage completed. tw5 23:53 Arm band placed on right wrist. tw5 10/11 00:20 Call light in reach. Side rails up X2. Door closed. Warm blanket given. wm 00:20 Initial lab(s) drawn, by me, sent to lab. Urine collected: clean catch specimen, clear. wm 00:20 Inserted saline lock: 20 gauge in left antecubital area, using aseptic technique. Blood wm collected. 00:39 Urinalysis Sent. wm 00:39 CMP Sent. wm 00:39 CBC with Diff Sent. wm 01:28 Jamaal Adams DO is Referral Physician. ms3 01:44 Dressings: Band aid x 1 left antecubital area. Removal of peripheral IV. Catheter wm intact, dressing applied. 01:49 No provider procedures requiring assistance completed. IV discontinued, intact, kl bleeding controlled, No redness/swelling at site. Pressure dressing applied. Administered Medications: No medications were administered Medication: 01:49 VIS not applicable for this client. Outcome: 01:28 Discharge ordered by . ms3 01:50 Discharged to home ambulatory, with family. 01:50 Condition: stable 01:50 Discharge instructions given to patient, family, Instructed on discharge instructions, follow up and referral plans. Demonstrated understanding of instructions, follow-up care. 01:50 Patient left the ED. NIH Stroke Scale - NIH Stroke Score Date: 10/10/2022 Time: 23:50 Total Score = 0 1a. Level of Consciousness (LOC) - 0(Alert) 1b. Level of Consciousness (LOC) (Month \T\ Age) - 0(Both) 1c. LOC Commands (Open \T\ Closes Eyes/Manager Workers Compensation) - 0(Both) 2. Best Gaze (Lateral Gaze Paresis) - 0(Normal) 3. Visual Field Loss - 0(No visual loss) 4. Facial Palsy - 0(Normal) 5a. Left Arm: Motor (10-second hold) - 0(No drift) 5b. Right Arm: Motor (10-second hold) - 0(No drift) 6a. Left Leg: Motor (5-second hold - always test supine) - 0(No drift) 6b. Right Leg: Motor (5-second hold - always test supine) - 0(No drift) 7. Limb Ataxia (finger/nose \T\ heel/capellan - test with eyes open) - 0(Absent) 8. Sensory Loss (pinprick arms/legs/face) - 0(Normal) 9. Best Language: Aphasia (description/naming/reading) - 0(No aphasia) 10. Dysarthria (speech clarity - read or repeat words) - 0(Normal) 11. Extinction and Inattention (visual/tactile/auditory/spatial/personal) - 0(No abnormality) Initials: ms3 NIH Stroke Scale - NIH Stroke Score Date: 10/11/2022 Time: 00:28 Total Score = 0 1a. Level of Consciousness (LOC) - 0(Alert) 1b. Level of Consciousness (LOC) (Month \T\ Age) - 0(Both) 1c. LOC Commands (Open \T\ Closes Eyes/Manager Workers Compensation) - 0(Both) 2. Best Gaze (Lateral Gaze Paresis) - 0(Normal) 3. Visual Field Loss - 0(No visual loss) 4. Facial Palsy - 0(Normal) 5a. Left Arm: Motor (10-second hold) - 0(No drift) 5b. Right Arm: Motor (10-second hold) - 0(No drift) 6a. Left Leg: Motor (5-second hold - always test supine) - 0(No drift) 6b. Right Leg: Motor (5-second hold - always test supine) - 0(No drift) 7. Limb Ataxia (finger/nose \T\ heel/capellan - test with eyes open) - 0(Absent) 8. Sensory Loss (pinprick arms/legs/face) - 0(Normal) 9. Best Language: Aphasia (description/naming/reading) - 0(No aphasia) 10. Dysarthria (speech clarity - read or repeat words) - 0(Normal) 11. Extinction and Inattention (visual/tactile/auditory/spatial/personal) - 0(No abnormality) Initials: greg Signatures: Page Tejada RN RN Rudi Hooks DO DO ms3 Gabriela Dhillon, Faye holliday2 Latia Son tw5 Corrections: (The following items were deleted from the chart) 00:38 00:36 Inserted saline lock: 20 gauge in left antecubital area, using aseptic wm technique. Blood collected. wm
--- NOTE | 2022-10-11 01:29 | EDPHYS ---
Physician Documentation [facility] Name: Dayday Watkins Age: 52 yrs Sex: Male : 1970 Arrival Date: 10/10/2022 Time: 23:26 Bed 8 Private MD: ED Physician Rudi Rubalcava HPI: 10/10 23:49 This 52 yrs old Male presents to ER via Unassigned with complaints of Facial Droop, ms3 Decreased Appetite, Diarrhea. 23:50 52-year-old male with known lower intestine mass presents for left eye droop, increased ms3 urination, diarrhea, increased abdominal pain, jitteriness that began 2 days prior to arrival. Patient denies pain at this time. Patient denies alleviating or inciting factors. Patient denies fevers, chills, constipation.. Onset: The symptoms/episode began/occurred 2 day(s) ago. Severity of symptoms: At their worst the symptoms were moderate in the emergency department the symptoms have improved. Historical: - Allergies: 23:53 PENICILLINS; tw5 - PMHx: 23:53 Mass in colon; tw5 - PSHx: 23:53 ex lap; tw5 - Immunization history:: Adult Immunizations up to date, Client reports having NOT received the Covid vaccine. Last tetanus immunization: unknown. - Social history:: Smoking status: Patient denies any tobacco usage or history of. ROS: 23:50 Constitutional: Negative for fever, and chills. Neck: Negative for injury, pain, and ms3 swelling, Cardiovascular: Negative for chest pain, and palpitations. Respiratory: Negative for shortness of breath, cough, wheezing, and pleuritic chest pain. 23:50 Back: Negative for injury and pain, MS/Extremity: Negative for injury and deformity, Skin: Negative for injury, rash, and discoloration, Neuro: Negative for headache, weakness, numbness, tingling. 23:50 Abdomen/GI: Positive for abdominal pain, diarrhea. 23:50 All other systems are negative. Exam: 23:50 Constitutional: This is a well developed, well nourished patient who is awake, alert, ms3 and in no acute distress. Head/Face: Normocephalic, atraumatic. Neck: Trachea midline, no cervical lymphadenopathy. Supple, full range of motion without nuchal rigidity, or vertebral point tenderness. No Meningismus. Chest/axilla: Normal chest wall appearance and motion. Nontender with no deformity. Cardiovascular: Regular rate and rhythm with a normal S1 and S2. No gallops, murmurs, or rubs. Normal PMI, no JVD. No pulse deficits. Respiratory: Lungs have equal breath sounds bilaterally, clear to auscultation and percussion. No rales, rhonchi or wheezes noted. No increased work of breathing, no retractions or nasal flaring. Abdomen/GI: Soft, non-tender, with normal bowel sounds. No distension or tympany. No guarding or rebound. No evidence of tenderness throughout. Back: No spinal tenderness. No costovertebral tenderness. Full range of motion. Skin: Warm, dry with normal turgor. Normal color with no rashes, no lesions, and no evidence of cellulitis. MS/ Extremity: Pulses equal, no cyanosis. Neurovascular intact. Full, normal range of motion. 23:50 Neuro: Orientation: is normal, Mentation: is normal, Memory: is normal, Cranial nerves: CN II- XII are normal as tested. Vital Signs: 23:50 BP 148 / 107; Pulse 76; Resp 20; Temp 98.1; Pulse Ox 98% ; Weight 72.57 kg; Height 6 tw5 ft. 0 in. (182.88 cm); Pain 6/10; 10/11 00:31 BP 131 / 98; Pulse 78; Resp 18; Pulse Ox 100% ; kl 01:49 BP 136 / 85; Pulse 72; Resp 18; Pulse Ox 99% on R/A; kl 10/10 23:50 Body Mass Index 21.70 (72.57 kg, 182.88 cm) tw5 NIH Stroke Scale Scores: 10/10 23:50 NIHSS Score: 0 ms3 10/11 00:28 NIHSS Score: 0 kl MDM: 10/10 23:42 Patient medically screened. ms3 10/11 01:28 Data reviewed: vital signs, nurses notes, lab test result(s), and as a result, I will ms3 discharge patient. Counseling: I had a detailed discussion with the patient and/or guardian regarding: the historical points, exam findings, and any diagnostic results supporting the discharge/admit diagnosis, lab results, the need for outpatient follow up, to return to the emergency department if symptoms worsen or persist or if there are any questions or concerns that arise at home. ED course: Discussed labs with patient. Patient to follow-up with primary care physician in 2 to 3 days. Patient understands and agrees with plan. All questions were answered. Return precautions discussed include worsening symptoms, or any other concerns. On reevaluation patient is alert and oriented x4, in no apparent distress, nontoxic appearing, speaking full sentences, ambulatory in the emergency department. 10/10 23:42 Order name: CBC with Diff; Complete Time: 01:21 ms3 10/10 23:42 Order name: CMP; Complete Time: 01:21 ms3 10/10 23:42 Order name: Urinalysis; Complete Time: 01:21 ms3 10/10 23:42 Order name: Urine Dipstick-Ancillary (obtain specimen); Complete Time: 00:39 ms3 10/11 00:34 Order name: Urine Dipstick-Ancillary; Complete Time: 01:21 EDMS Administered Medications: No medications were administered Disposition Summary: 10/11/22 01:28 Discharge Ordered Location: Home ms3 Condition: Stable ms3 Diagnosis - Diarrhea, unspecified ms3 - Elevated blood-pressure reading, without diagnosis of hypertension ms3 Followup: ms3 - With: Jamaal Adams DO - When: 2 - 3 days - Reason: Recheck today's complaints Discharge Instructions: - Discharge Summary Sheet ms3 - Diarrhea, Adult ms3 Forms: - Medication Reconciliation Form ms3 - Thank You Letter ms3 - Antibiotic Education ms3 - Prescription Opioid Use ms3 NIH Stroke Scale - NIH Stroke Score Date: 10/10/2022 Time: 23:50 Total Score = 0 1a. Level of Consciousness (LOC) - 0(Alert) 1b. Level of Consciousness (LOC) (Month \T\ Age) - 0(Both) 1c. LOC Commands (Open \T\ Closes Eyes/Wheat [place] Oats Flake Miller) - 0(Both) 2. Best Gaze (Lateral Gaze Paresis) - 0(Normal) 3. Visual Field Loss - 0(No visual loss) 4. Facial Palsy - 0(Normal) 5a. Left Arm: Motor (10-second hold) - 0(No drift) 5b. Right Arm: Motor (10-second hold) - 0(No drift) 6a. Left Leg: Motor (5-second hold - always test supine) - 0(No drift) 6b. Right Leg: Motor (5-second hold - always test supine) - 0(No drift) 7. Limb Ataxia (finger/nose \T\ heel/capellan - test with eyes open) - 0(Absent) 8. Sensory Loss (pinprick arms/legs/face) - 0(Normal) 9. Best Language: Aphasia (description/naming/reading) - 0(No aphasia) 10. Dysarthria (speech clarity - read or repeat words) - 0(Normal) 11. Extinction and Inattention (visual/tactile/auditory/spatial/personal) - 0(No abnormality) Initials: ms3 NIH Stroke Scale - NIH Stroke Score Date: 10/11/2022 Time: 00:28 Total Score = 0 1a. Level of Consciousness (LOC) - 0(Alert) 1b. Level of Consciousness (LOC) (Month \T\ Age) - 0(Both) 1c. LOC Commands (Open \T\ Closes Eyes/Wheat [place] Oats Flake Miller) - 0(Both) 2. Best Gaze (Lateral Gaze Paresis) - 0(Normal) 3. Visual Field Loss - 0(No visual loss) 4. Facial Palsy - 0(Normal) 5a. Left Arm: Motor (10-second hold) - 0(No drift) 5b. Right Arm: Motor (10-second hold) - 0(No drift) 6a. Left Leg: Motor (5-second hold - always test supine) - 0(No drift) 6b. Right Leg: Motor (5-second hold - always test supine) - 0(No drift) 7. Limb Ataxia (finger/nose \T\ heel/capellan - test with eyes open) - 0(Absent) 8. Sensory Loss (pinprick arms/legs/face) - 0(Normal) 9. Best Language: Aphasia (description/naming/reading) - 0(No aphasia) 10. Dysarthria (speech clarity - read or repeat words) - 0(Normal) 11. Extinction and Inattention (visual/tactile/auditory/spatial/personal) - 0(No abnormality) Initials: kl Signatures: Dispatcher [employer] EDMS Rudi Rubalcava, DO ms3 Latia Son tw5
[2022-10-11 01:55] VITALS: TEMP 98.1
[2022-10-11 01:58] VITALS: BP 136/85; O2SAT 99
== END 2022-10-11 01:50 | disposition home or self-care (01) ==
LOC: ER 23:21
DX: R19.7 Diarrhea, unspecified (principal); R03.0 Elevated blood-pressure reading, without diagnosis of hypertension
CPT/HCPCS: 36415; 80053; 81003; 85025; 99283

== ENCOUNTER 2024-08-21 20:36 | Emergency (ER) | payer OTHER ==
[2024-08-21] MEDS ORDERED: NA CHLORIDE 0.9% 1,000 ML ONE (21:16)
[2024-08-21 21:28] LABS: Absolute Basophils 0.1 K/uL (0-0.5); Absolute Eosinophils 0.2 K/uL (0-0.5); Absolute Lymphocytes (CBC) 1.1 K/uL (0.7-4.9); Absolute Monocytes 0.7 K/uL (0.1-1.3); Absolute Neutrophil 3.8 K/uL (1.8-8.0); Basophils % 1.2 % (0-1.3); Eosinophils % 3.3 % (0-4.4); Hematocrit 37.4 % (39.6-49.0); Hemoglobin 12.7 g/dL (13.6-17.9); Lymphocytes % 18.8 % (15.3-44.8); MCH 31.6 pg (27.0-35.0); MCV 92.9 fL (80-100); MPV 8.2 fL (7.6-11.3); Monocytes % 12.7 % (3.3-12.3); Platelets 220 thou/uL (152-406); RBC Red Blood Cell Count 4.02 M/uL (4.33-5.43)
--- NOTE | 2024-08-21 21:28 | RAD REPORT ---
Procedure: Chest Single View HISTORY: Cough COMPARISON: 2021 FINDINGS: The lungs appear clear of acute infiltrate. Lungs are hyperaerated No significant pleural effusion noted. The heart is normal size. IMPRESSION: No acute abnormality is displayed.
[2024-08-21 21:31] LABS: PT Prothrombin Time 11.4 SECONDS (9.4-12.5); Protime INR 1.02
[2024-08-21 21:48] LABS: ALT/SGPT 63 U/L (16-61); AST/SGOT 35 U/L (15-37); Albumin 3.6 g/dL (3.4-5.0); Albumin/Globulin Ratio 1.2 (1.1-1.8); Alkaline Phosphatase 51 U/L (45-117); Anion Gap 8.5 mEq/L (5.0-15.0); BUN Blood Urea Nitrogen 19 mg/dL (7-18); Bicarbonate 27 mEq/L (21-32); Bilirubin Total 0.5 mg/dL (0.2-1.0); Glomerular Filtration Rate 71 ml/min (=/>90); Glucose Level 125 mg/dL (74-106); Lipase 25 U/L (13-75); Magnesium 1.9 mg/dL (1.6-2.4); NT PRO-BNP 49 pg/mL (<125); Potassium 3.5 mEq/L (3.5-5.1); Protein, Total 6.6 g/dL (6.4-8.2); Sodium Level 135 mEq/L (136-145); Troponin High Sensitivity 7.9 pg/mL (<58.9)
[2024-08-21 21:52] LABS: Bilirubin Direct < 0.2 mg/dL (0-0.2); Bilirubin Indirect, Calculated 0.3 mg/dL (0.2-0.8)
--- NOTE | 2024-08-21 22:22 | RAD REPORT ---
EXAM: CT brain without contrast HISTORY: Syncope COMPARISON: 2021 TECHNIQUE: Multiple contiguous axial images were obtained and a CT of the brain without contrast.. Sagittal and coronal reconstruction performed. Automated exposure control, adjustment of the mA and/or kV according to patient size, and/or iterative reconstruction. Unless otherwise specified, incidental f indings do not require dedicated imaging follow-u FINDINGS: An intracranial bleed is not seen Ventricles are normal caliber No extra-axial fluid collection noted No significant hypodensity within the brain No fluid within the visualized sinuses or mastoids noted. IMPRESSION: No acute intracranial abnormality noted. If the patient's symptoms persist MRI of the brain would be recommended.
--- NOTE | 2024-08-21 22:32 | RAD REPORT ---
EXAMINATION: CT ABDOMEN AND PELVIS WITH CONTRAST CLINICAL INDICATION: Abdominal pain TECHNIQUE: CT abdomen and pelvis was performed, after the administration of 100 cc Isovue-300.. Sagit delores and coronal reconstructions were obtained. One or more of the following dose reduction techniques were used: Automated exposure control, adjustment of the mA and kV according to patient si ze, and iterative reconstruction. Unless otherwise specified, incidental findings do not require dedicated imaging follow-up. [id number]. Oral contrast was not given which limits evaluation of bowel and appendix. COMPARISON: none FINDINGS: 2.3 cm low to intermediate density mass medial segment left lobe of the liver. Mild fatty infiltration liver. Tiny cyst right lobe. Cholecystectomy The spleen, pancreas, adrenals and kidneys unremarkable. Diverticula stem from the colon without visualization of diverticulitis. Normal appendix : IMPRESSION: 2.3 cm hepatic mass. Liver ultrasound recommended
--- NOTE | 2024-08-21 22:39 | ER ---
Nurse's Notes [facility] Name: Dayday Watkins Age: 54 yrs Sex: Male : 1970 Arrival Date: 08/21/2024 Time: 20:36 Bed 20 Private MD: Diagnosis: Diarrhea, unspecified;Weakness;Dizziness and giddiness;Abnormal findings on diagnostic imaging of liver and biliary tract-2.3 cm liver mass Presentation: 08/21 20:55 Chief complaint: Patient states: Multiple complaints that have been going on since cm10 08/06. Pt states that he has been shaky, weak, light headed, has had abdominal pain and diarrhea. Coronavirus screen: Client denies travel out of the [place] in the last 14 days. Ebola Screen: Patient denies travel to an Ebola-affected area in the 21 days before illness onset. No symptoms or risks identified at this time. Initial Sepsis Screen: Does the patient meet any 2 criteria? No. Patient's initial sepsis screen is negative. Does the patient have a suspected source of infection? No. Patient's initial sepsis screen is negative. Risk Assessment: Do you want to hurt yourself or someone else? Patient reports no desire to harm self or others. Onset of symptoms was August 06, 2024. 20:55 Method Of Arrival: Ambulatory 10 20:55 Acuity: NENA 3 cm10 Triage Assessment: 20:57 General: Appears in no apparent distress. comfortable, Behavior is calm, cooperative. cm10 Neuro: No deficits noted. Level of Consciousness is awake, alert, obeys commands, Oriented to person, place, time, situation, Appropriate for age. Respiratory: No deficits noted. Airway is patent Respiratory effort is even, unlabored, Respiratory pattern is regular, symmetrical. 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 - Infectious Disease History:: Denies. - Social history:: Smoking status: Patient reports use of chewing tobacco. Patient uses alcohol, on a daily basis. Screenin:33 [facility] ED Fall Risk Assessment (Adult) History of falling in the last 3 months, rg5 including since admission No falls in past 3 months (0 pts) Confusion or Disorientation No (0 pts) Intoxicated or Sedated No (0 pts) Impaired Gait No (0 pts) Mobility Assist Device Used No (0 pt) Altered Elimination No (0 pt) Score/Fall Risk Level 0 - 2 = Low Risk Oriented to surroundings, Maintained a safe environment, Hourly rounding (assess needs \T\ fall precautionary measures) done. Abuse screen: Denies threats or abuse. Nutritional screening: No deficits noted. Tuberculosis screening: Has had TB. Assessment: 21:33 General: Appears in no apparent distress. Behavior is calm, cooperative, appropriate rg5 for age. Pain: Complains of pain in head, abdomen, knee. Neuro: Level of Consciousness is awake, alert, obeys commands, Oriented to person, place, time. Cardiovascular: Capillary refill < 3 seconds Patient's skin is warm and dry. Rhythm is sinus rhythm. Respiratory: Reports pain with respiration Airway is patent Trachea midline Respiratory effort is even, unlabored, Respiratory pattern is regular, symmetrical. GI: Abdomen is flat, Bowel sounds present X 4 quads. Abd is soft and non tender Reports upper abdominal pain, diarrhea, nausea. : No signs and/or symptoms were reported regarding the genitourinary system. EENT: Reports photophobia. Derm: Skin is intact, Skin is dry, Skin is normal, Skin temperature is warm. Musculoskeletal: Circulation, motion, and sensation intact. Range of motion: intact in all extremities. 22:30 Reassessment: Patient and/or family updated on plan of care and expected duration. Pain rg5 level reassessed. Patient is alert, oriented x 3, equal unlabored respirations, skin warm/dry/pink. 23:00 Reassessment: Patient and/or family updated on plan of care and expected duration. Pain rg5 level reassessed. Patient is alert, oriented x 3, equal unlabored respirations, skin warm/dry/pink. Vital Signs: 20:55 BP 133 / 92; Pulse 73; Resp 18; Temp 98.2; Pulse Ox 100% on R/A; Weight 68.04 kg; cm10 Height 6 ft. 0 in. ; Pain 10/10; 21:32 BP 139 / 94; Pulse 91; Resp 18; Pulse Ox 100% on R/A; Pain 7/10; rg5 22:45 BP 127 / 85; Pulse 88; Resp 17; Temp 98(O); Pulse Ox 100% on R/A; Pain 5/10; rg5 20:55 Body Mass Index 20.34 (68.04 kg, 182.88 cm) cm10 20:55 Pain Scale: Adult cm10 21:32 Pain Scale: Adult rg5 22:45 Pain Scale: Adult rg5 Luiz Coma Score: 21:32 Eye Response: spontaneous(4). Motor Response: obeys commands(6). Verbal Response: rg5 oriented(5). Total: 15. ED Course: 20:38 Patient arrived in ED. ra3 20:51 Drew Turner, RN is Primary Nurse. rg5 20:54 Devon Rivera MD is Attending Physician. magy 20:56 Triage completed. cm10 20:57 Arm band placed on Patient placed in an exam room, on a stretcher. cm10 21:04 EKG done, by ED staff, reviewed by Devon Rivera MD. oe 21:10 XRAY Chest (1 view) In Process Unspecified. EDMS 21:33 Patient has correct armband on for positive identification. Bed in low position. Call rg5 light in reach. Side rails up X 1. Door closed. Noise minimized. Warm blanket given. Verbal reassurance given. 21:33 No provider procedures requiring assistance completed. Inserted saline lock: 20 gauge rg5 in left antecubital area, using aseptic technique. Blood collected. Flushed with 10 mL NS. 22:16 CT Abd/Pelvis - IV Contrast Only In Process Unspecified. EDMS 22:16 CT Head Brain wo Cont In Process Unspecified. EDMS 22:38 Cee Moncada MD is Referral Physician. [facility] 23:12 Provided Education on: post er care. rg5 23:12 IV discontinued, bleeding controlled, No redness/swelling at site. Pressure dressing rg5 applied. Administered Medications: 21:23 Drug: NS 0.9% IV 1000 ml IV at 1000 ml once; to be given as a bolus over 60 minutes rg5 Route: IV; Rate: 1000 ml; Site: left antecubital; 22:00 Follow up: IV Status: Completed infusion; IV Intake: 1000ml rg5 Medication: 21:33 VIS not applicable for this client. rg5 Intake: 22:00 IV: 1000ml; Total: 1000ml. rg5 Outcome: 22:39 Discharge ordered by . magy 23:12 Discharged to home ambulatory, rg5 23:12 Condition: stable 23:12 Discharge instructions given to patient, family, Instructed on discharge instructions, follow up and referral plans. Demonstrated understanding of instructions, follow-up care, medications, Prescriptions given X 1, 23:14 Patient left the ED. rg5 Signatures: Dispatcher [employer] EDMS Devon Rivera MD MD cha Espinosa, Orlando oe Martinez, Clarissa, RN RN 10 Gabriela Marc 3 Drew Turner, JERICHO RN rg5
--- NOTE | 2024-08-21 22:39 | EDPHYS ---
Physician Documentation [facility] Name: Dayday Watkins Age: 54 yrs Sex: Male : 1970 Arrival Date: 08/21/2024 Time: 20:36 Bed 20 Private MD: RICHARD Physician Devon Rivera HPI: 08/21 22:00 This 54 yrs old Male presents to ER via Ambulatory with complaints of magy Diarrhea - Fatigue. 22:00 The patient presents to the emergency department with diarrhea, abdominal pain, of the magy right upper quadrant, left upper quadrant, right lower quadrant and left lower quadrant. Onset: The symptoms/episode began/occurred 2 day(s) ago. 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 - Infectious Disease History:: Denies. - Social history:: Smoking status: Patient reports use of chewing tobacco. Patient uses alcohol, on a daily basis. ROS: 22:01 Constitutional: Negative for fever, chills, and weight loss, Eyes: Negative for injury, magy pain, redness, and discharge, ENT: Negative for injury, pain, and discharge, Neck: Negative for injury, pain, and swelling, Cardiovascular: Negative for chest pain, palpitations, and edema, Respiratory: Negative for shortness of breath, cough, wheezing, and pleuritic chest pain, Abdomen/GI: Negative for abdominal pain, nausea, vomiting, diarrhea, and constipation, Back: Negative for injury and pain, : Negative for injury, bleeding, discharge, and swelling, MS/Extremity: Negative for injury and deformity, Skin: Negative for injury, rash, and discoloration, Neuro: Negative for headache, weakness, numbness, tingling, and seizure, Psych: Negative for depression, anxiety, suicide ideation, homicidal ideation, and hallucinations, Allergy/Immunology: Negative for hives, rash, and allergies, Endocrine: Negative for neck swelling, polydipsia, polyuria, polyphagia, and marked weight changes, Hematologic/Lymphatic: Negative for swollen nodes, abnormal bleeding, and unusual bruising, Exam: 22:01 Constitutional: This is a well developed, well nourished patient who is awake, alert, magy and in no acute distress. Head/Face: Normocephalic, atraumatic. Eyes: Pupils equal round and reactive to light, extra-ocular motions intact. Lids and lashes normal. Conjunctiva and sclera are non-icteric and not injected. Cornea within normal limits. Periorbital areas with no swelling, redness, or edema. ENT: Nares patent. No nasal discharge, no septal abnormalities noted. Tympanic membranes are normal and external auditory canals are clear. Oropharynx with no redness, swelling, or masses, exudates, or evidence of obstruction, uvula midline. Mucous membranes moist. Neck: Trachea midline, no thyromegaly or masses palpated, and no cervical lymphadenopathy. Supple, full range of motion without nuchal rigidity, or vertebral point tenderness. No Meningismus. Chest/axilla: Normal chest wall appearance and motion. Nontender with no deformity. No lesions are appreciated. Cardiovascular: Regular rate and rhythm with a normal S1 and S2. No gallops, murmurs, or rubs. Normal PMI, no JVD. No pulse deficits. Respiratory: Lungs have equal breath sounds bilaterally, clear to auscultation and percussion. No rales, rhonchi or wheezes noted. No increased work of breathing, no retractions or nasal flaring. Abdomen/GI: Soft, non-tender, with normal bowel sounds. No distension or tympany. No guarding or rebound. No evidence of tenderness throughout. Back: No spinal tenderness. No costovertebral tenderness. Full range of motion. Male : Normal genitalia with no discharge or lesions. Skin: Warm, dry with normal turgor. Normal color with no rashes, no lesions, and no evidence of cellulitis. MS/ Extremity: Pulses equal, no cyanosis. Neurovascular intact. Full, normal range of motion. Neuro: Awake and alert, GCS 15, oriented to person, place, time, and situation. Cranial nerves II-XII grossly intact. Motor strength 5/5 in all extremities. Sensory grossly intact. Cerebellar exam normal. Normal gait. Psych: Awake, alert, with orientation to person, place and time. Behavior, mood, and affect are within normal limits. 22:01 ECG was reviewed by the Attending Physician. 22:01 Musculoskeletal/extremity: DVT Exam: No signs of deep vein thrombosis. no pain, no swelling, no tenderness, negative Homans' sign noted on exam, no appreciated bluish discoloration, no erythema, no increased warmth, Vital Signs: 20:55 BP 133 / 92; Pulse 73; Resp 18; Temp 98.2; Pulse Ox 100% on R/A; Weight 68.04 kg; cm10 Height 6 ft. 0 in. ; Pain 10/10; 21:32 BP 139 / 94; Pulse 91; Resp 18; Pulse Ox 100% on R/A; Pain 7/10; rg5 22:45 BP 127 / 85; Pulse 88; Resp 17; Temp 98(O); Pulse Ox 100% on R/A; Pain 5/10; rg5 20:55 Body Mass Index 20.34 (68.04 kg, 182.88 cm) cm10 20:55 Pain Scale: Adult cm10 21:32 Pain Scale: Adult rg5 22:45 Pain Scale: Adult rg5 Bradley Coma Score: 21:32 Eye Response: spontaneous(4). Motor Response: obeys commands(6). Verbal Response: rg5 oriented(5). Total: 15. MDM: 20:54 Patient medically screened. magy 22:02 Differential diagnosis: Nonspecific abd pain, gastritis, cholecystitis, pancreatitis, magy appendicitis, diverticulitis, viral gastroenteritis, gastroenteritis. Data reviewed: vital signs, nurses notes, lab test result(s), EKG, radiologic studies, CT scan, plain films. Consideration of Admission/Observation Patient was admitted/placed on observation. Escalation of care including admission/observation considered. I considered the following discharge prescriptions or medication management in the emergency department Medications were administered in the Emergency Department. See MAR. Independent interpretation of the following test(s) in the Emergency Department EKG: See my EKG interpretation above. Test considered but Not performed: Ultrasound no abd usg. Historians other than the Patient: Spouse/Significant Other: well informed. Care significantly affected by the following chronic conditions: Hypertension, colon mass, brain aneurysm. 08/21 20:55 Order name: Basic Metabolic Panel; Complete Time: 22:00 [facility] 08/21 20:55 Order name: CBC with Diff; Complete Time: 22:00 [facility] 08/21 20:55 Order name: LFT's; Complete Time: 22:00 [facility] 08/21 20:55 Order name: Magnesium; Complete Time: 22:00 08/21 20:55 Order name: NT PRO-BNP; Complete Time: 22:00 08/21 20:55 Order name: PT-INR; Complete Time: 22:00 08/21 20:55 Order name: Troponin HS; Complete Time: 22:00 08/21 20:55 Order name: Lipase; Complete Time: 22:00 08/21 21:06 Order name: TSH; Complete Time: 22:00 08/21 21:35 Order name: Flu 08/21 21:35 Order name: SARS RAPID 08/21 20:55 Order name: XRAY Chest (1 view); Complete Time: 22:00 08/21 20:55 Order name: CT Abd/Pelvis - IV Contrast Only; Complete Time: 22:36 08/21 21:35 Order name: CT Head Brain wo Cont; Complete Time: 22:36 [facility] 08/21 20:55 Order name: Cardiac monitoring; Complete Time: 21:05 08/21 20:55 Order name: EKG - Nurse/Tech; Complete Time: 21:05 08/21 20:55 Order name: IV Saline Lock; Complete Time: 21:17 08/21 20:55 Order name: Labs collected and sent; Complete Time: 21:17 08/21 20:55 Order name: O2 Per Protocol; Complete Time: 21:17 magy 08/21 20:55 Order name: O2 Sat Monitoring; Complete Time: 21:17 magy EC:01 Rate is 73 beats/min. Rhythm is regular. QRS [place] is Normal. AL interval is normal. QRS magy interval is normal. QT interval is normal. No Q waves. T waves are Normal. No ST changes noted. Clinical impression: Normal ECG and No evidence of ischemia. Interpreted by me. Reviewed by me. Administered Medications: 21:23 Drug: NS 0.9% IV 1000 ml IV at 1000 ml once; to be given as a bolus over 60 minutes rg5 Route: IV; Rate: 1000 ml; Site: left antecubital; 22:00 Follow up: IV Status: Completed infusion; IV Intake: 1000ml rg5 Disposition Summary: 08/21/24 22:39 Discharge Ordered Notes: Location: Home magy Problem: new magy Symptoms: have improved magy Condition: Stable magy Diagnosis - Diarrhea, unspecified magy - Weakness magy - Dizziness and giddiness magy - Abnormal findings on diagnostic imaging of liver and biliary tract - 2.3 cm liver magy mass Followup: magy - With: Private Physician - When: 2 - 3 days - Reason: Recheck today's complaints, Continuance of care, Re-evaluation by your physician Followup: magy - With: Cee Moncada MD - When: 2 - 3 days - Reason: Recheck today's complaints, Continuance of care, Re-evaluation by your physician Discharge Instructions: - Discharge Summary Sheet magy - Food Choices to Help Relieve Diarrhea, Adult magy - Diarrhea, Adult magy - Dizziness magy - Weakness magy - Fatigue magy - Diarrhea, Adult, [id number] magy - Incidental Abnormal Radiological Finding magy - Weakness, [id number] magy - Dizziness, [id number] [facility] Forms: - Medication Reconciliation Form magy - Antibiotic Education magy - Prescription Opioid Use magy - Patient Portal Instructions magy - Leadership Thank You Letter [facility] Prescriptions: - ondansetron 4 mg Oral Tablet,disintegrating - take 1 tablet ORAL route every 6-8 hours as needed for nausea and vomiting; 20 [facility] tablet; Refills: 0, Product Selection Permitted Signatures: Dispatcher [employer] EDMS Devon Rivera MD MD cha Martinez, Clarissa, RN RN cm10 Drew Turner, RN RN rg5 Corrections: (The following items were deleted from the chart) 20:55 20:55 Chest Single View+RAD.RAD.BRZ ordered. EDNH EDMS 20:55 20:55 Abdomen Pelvis W Con+CT.RAD.BRZ ordered. EDMS EDMS 21:06 21:06 THYROID STIMULAT HORMONE+C.LAB.BRZ ordered. EDMS EDMS 21:35 21:35 Influenza Screen (A \T\ B)+BA.LAB.BRZ ordered. EDMS EDMS 21:35 21:35 SARS-COV-2 Antigen Rapid+I.LAB.BRZ ordered. EDNH EDMS
[2024-08-21 22:50] LABS: SARS-CoV-2 Antigen CONTROL BLUE LINE VIS/BG OK; SARS-CoV-2 Antigen Rapid Res Negative (Negative)
[2024-08-22 03:17] VITALS: O2SAT 100
[2024-08-22 03:23] VITALS: BP 127/85; TEMP 98
== END 2024-08-21 23:14 | disposition home or self-care (01) ==
LOC: ER 20:36
DX: R19.7 Diarrhea, unspecified (principal); R53.1 Weakness; R42 Dizziness and giddiness; R16.0 Hepatomegaly, not elsewhere classified; R93.2 Abnormal findings on diagnostic imaging of liver and biliary tract; F17.220 Nicotine dependence, chewing tobacco, uncomplicated
CPT/HCPCS: 93005; 85025; 80048; 36415; 83735; 85610; 80076; 84443; 84484; 83690; 83880; 87804 ×2; 70450; 74177; 71045; 87811; Q9967; J7030